=== PATIENT | female | born 1935 | race Caucasian/White ===

== ENCOUNTER 2020-10-12 12:40 | Outpatient (REF) | payer MEDICARE, SELFPAY ==
--- NOTE | 2020-10-12 12:46 | MM_ITS ---
EXAMINATION: BONE DENSITOMETRY CLINICAL INDICATION: Osteoporosis. COMPARISON: Previous BD dated 08/22/2018 and baseline BD dated 05/06/2008. MR lumbar spine 06/25/2014. TECHNIQUE: Using a CTQuan DXA System (software version: 13.1) manufactured by [employer], dual-energy x-ray absorptiometry was performed of the lumbar spine and left hip. The images are of good technical quality. Summary results are attached. FINDINGS: AP SPINE L1-L3 (excluding L4): The data of L1-L4 has been changed to exclude the L4 vertebral body, because degenerative changes at this level may cause overestimation of lumbar spine density. Current: BMD 1.185 g/cm2, Z-score 2.1, T-score 0.1, normal, 3.7% increase from previous, 19.2% increase from baseline (<5% change is not significant). Prior: BMD 1.143 g/cm2. Baseline: BMD 0.994 g/cm2. LEFT FEMUR, NECK: Current: BMD 0.641 g/cm2, Z-score -0.5, T-score -2.9, osteoporosis. Prior: BMD 0.697 g/cm2. Baseline: BMD 0.675 g/cm2. LEFT FEMUR, TOTAL: Current: BMD 0.682 g/cm2, Z-score -0.4, T-score -2.6, osteoporosis, 1.6% decrease from previous, 10.3% decrease from baseline (<5% change is not significant). Prior: BMD 0.693 g/cm2. Baseline: BMD 0.760 g/cm2. IDENTIFIED RISK FACTORS: Osteoporosis, tobacco use (current smoker), height loss, history of fracture (adult). Early menopause, secondary osteoporosis, hysterectomy, bilateral oophorectomy, thiazide. HISTORY OF FRACTURE: No acute fracture. MEDICATIONS: Calcium supplements or multivitamin, vitamin D, Prolia. MM/XR DEXA axial skeleton IMPRESSION: 1. DIAGNOSIS: Osteoporosis based on the lowest T-score value of -2.9 in the femoral neck applying World Health Organization criteria. 2. 10-YEAR FRACTURE RISK PREDICTION, FRAX: Major osteoporotic fracture (clinical spine, forearm, hip or shoulder) 33.7%. Hip fracture 18.2%. 3. Treatment Recommendations: NOF guidelines recommend consideration for treatment in postmenopausal women and men age 50 and older presenting with the following: -A hip or vertebral (clinical or morphometric) fracture. -T-score less than or equal to -2.5 at the femoral neck or spine after appropriate evaluation to exclude secondary causes. -Low bone mass at the hip or spine and a 10-year fracture probability by FRAX of greater than or equal to 3% for hip fracture or greater than or equal to 20% for major osteoporotic fracture based on the [place] adapted WHO algorithm. 4. Other Recommendations: All treatment decisions require clinical judgment and consideration of individual patient factors, including patient preferences, comorbidities, previous drug use, risk factors not captured in the FRAX model (e.g. frailty, falls, vitamin D deficiency, increased bone turnover, interval significant decline in bone density) and possible under or overestimation of fracture risk by FRAX. Additional medical evaluation for secondary cause of low bone mineral density may be appropriate. FUTURE SCAN RECOMMENDATION: People with diagnosed cases of osteoporosis or at high risk for fracture should have regular bone mineral density tests. For patients eligible for Medicare, routine testing is allowed once every 2 years. The testing frequency can be increased to one year for patients who have rapidly progressing disease, those who are receiving or discontinuing medical therapy to restore bone mass, or have additional risk factors.
== END 2020-10-12 12:41 | disposition home or self-care (01) ==
LOC: HO.MAMMO 12:40
PROVIDERS: Visit Provider Internal Medicine Endocrinology, Diabetes & Metabolism
DX: Z13.820 Encounter for screening for osteoporosis (principal); M81.0 Age-related osteoporosis without current pathological fracture; Z78.0 Asymptomatic menopausal state; F17.200 Nicotine dependence, unspecified, uncomplicated; Z79.899 Other long term (current) drug therapy; Z90.710 Acquired absence of both cervix and uterus; Z90.722 Acquired absence of ovaries, bilateral
CPT/HCPCS: 77080

== ENCOUNTER → 2020-11-10 13:20 | Outpatient (BNVA) | payer MEDICARE, SELFPAY | PROVIDERS: PCP Family Medicine; Visit Provider Internal Medicine Endocrinology, Diabetes & Metabolism | DX: M81.0 Age-related osteoporosis without current pathological fracture (principal) | CPT/HCPCS: 96372; 96402; 99212; J0897 ==

== ENCOUNTER 2020-12-01 11:28 | Outpatient (REF) | payer MEDICARE, SELFPAY ==
[2020-12-01 13:36] LABS: Alanine Aminotransferase 16 U/L (0-31); Albumin Level 4.4 g/dL (3.5-5.0); Alkaline Phosphatase 79 U/L (39-117); Anion Gap 13 (12-20); Aspartate Amino Transferase 18 U/L (5-31); Bilirubin Total 0.6 mg/dL (0.0-1.0); Blood Urea Nitrogen 17 mg/dL (9-16); Calcium 9.4 mg/dL (8.4-10.2); Carbon Dioxide 29 mmol/L (22-29); Chloride 100 mmol/L (96-108); Estimated Glomerular Filt Rate > 60; Glucose Fasting 129 mg/dL (60-99); Sodium 137 mmol/L (135-145); Total Protein 6.1 g/dL (6.5-8.0)
[2020-12-01 13:48] LABS: Vitamin D 25-OH Total 67.4 ng/mL (>30)
[2020-12-06 14:47] LABS: N-Telopeptide 15 (see note); NTXCreaRU 119 mg/dL (20-275)
== END 2020-12-01 11:29 | disposition home or self-care (01) ==
LOC: HO.LAB 11:28
PROVIDERS: Visit Provider Internal Medicine Endocrinology, Diabetes & Metabolism
DX: M81.0 Age-related osteoporosis without current pathological fracture (principal)
CPT/HCPCS: 36415; 80053; 82306; 82523

== ENCOUNTER 2021-05-15 11:19 | Outpatient (REF) | payer MEDICARE, SELFPAY ==
[2021-05-15 14:11] LABS: Alanine Aminotransferase 19 U/L (0-31); Albumin Level 4.2 g/dL (3.5-5.0); Alkaline Phosphatase 83 U/L (39-117); Anion Gap 19 (12-20); Aspartate Amino Transferase 17 U/L (5-31); Bilirubin Total 0.5 mg/dL (0.0-1.0); Blood Urea Nitrogen 18 mg/dL (9-16); Calcium 9.6 mg/dL (8.4-10.2); Carbon Dioxide 23 mmol/L (22-29); Chloride 99 mmol/L (96-108); Estimated Glomerular Filt Rate > 60; Glucose Random 110 mg/dL (60-115); Phosphorus 4.2 mg/dL (2.7-4.5); Potassium 4.7 mmol/L (3.3-5.1); Sodium 136 mmol/L (135-145); Total Protein 6.7 g/dL (6.5-8.0)
[2021-05-15 14:31] LABS: Vitamin D 25-OH Total 59.6 ng/mL (>30)
[2021-05-16 19:27] LABS: Calcium (PTHI) 9.5 mg/dL (8.6-10.4); PTHI 15 pg/mL (14-64)
== END 2021-05-15 11:20 | disposition home or self-care (01) ==
LOC: HO.WFDLDS 11:19
PROVIDERS: Visit Provider Internal Medicine
DX: M81.0 Age-related osteoporosis without current pathological fracture (principal)
CPT/HCPCS: 36415; 80053; 82306; 83970; 84100

== ENCOUNTER → 2021-05-18 13:19 | Outpatient (BNVA) | payer MEDICARE, SELFPAY | PROVIDERS: PCP Family Medicine; Visit Provider Internal Medicine | DX: M81.0 Age-related osteoporosis without current pathological fracture (principal) | CPT/HCPCS: 96372; J0897 ==

== ENCOUNTER 2021-08-14 08:22 | Day surgery (SDC) | payer MEDICARE, SELFPAY ==
[2021-08-07 14:25] VITALS: BMI 24.3
--- NOTE | 2021-08-08 14:40 | P.CONAN_ITS ---
Documented by User: Shannon Hart NP 08/08/21 14:40 HPI - Anesthesia Eval Consult details Narrative: 85yo F for Right Cataract Multifocal with IOL Insertion PCP Cleared No previous cataract on record PMFSH Active Problems Active Problems: All Active Problems (Updated 08/07/21 @ 14:22 by Juany Culver RN) Pre-operative clearance (Acute) Vitamin D deficiency (Acute) Osteoporosis (Acute) Past Medical History Medical History Low back pain Osteoporosis Peripheral neuropathy Smoker Vitamin D deficiency Family History Family History Father No problems noted. Mother No problems noted. Surgical History Surgical History History of total hysterectomy with bilateral salpingo-oophorectomy (BSO) Hx of appendectomy Hx of colonoscopy Hx of laminectomy Social History Social History (Updated 08/14/21 @ 11:21 by Shell Christianson MD) Patient Tobacco Use Status: Current everyday Tobacco user Tobacco use type: Cigarette Cigarettes Per Day: 7 Years Smoked: 30+ Smoked in Last 30 Days: Yes Use of substances other than those prescribed or required for medical reasons: No Are you DNR?: No Advance Directives: No Advance Directives Information Provided: Yes Advance Directives on File: No Meds Allergies Allergy/AdvReac Type Severity Reaction Status Date / Time meperidine [Demerol] Allergy Intermediate hives Verified 08/14/21 11:02 tetracycline Allergy Intermediate nausea and Verified 08/14/21 11:02 vomiting dexamethasone [From Decadron] AdvReac Severe severe Verified 08/14/21 11:02 burning sensation Environmental - Pollen Allergy Mild Itchy Eyes Uncoded 08/04/21 11:14 Home Medications Medication Instructions Recorded Confirmed Last Taken Type cholecalciferol (vitamin D3) 25 25 mcg PO DAILY 11/10/20 08/07/21 Unknown History mcg (1,000 unit) capsule denosumab 60 mg/mL subcutaneous 60 mg SUBCUT [id number] 11/10/20 08/07/21 Unknown History syringe (Prolia) ibuprofen 400 mg tablet 400 mg PO Q8H PRN 11/10/20 08/07/21 Unknown History vitamins A,C,I-icqv-skqoew 7,160 1 tab PO BID 11/10/20 08/07/21 Unknown History unit-113 mg-100 unit tablet (PreserVision AREDS) calcium carbonate 600 mg (1,500 1 tab PO BID 08/07/21 08/07/21 Unknown History mg)-vitamin D3 200 unit tablet famotidine 20 mg tablet (Pepcid) 20 mg PO DAILY PRN 08/07/21 08/07/21 Unknown History Exam Exam Date and Time: August 08, 2021 1440 Height,Weight and Vital Signs: Height 5 ft 3 in Weight 62.142 kg Assessment and Plan Assessment Anesthesia Assessment: Chart Reviewed Documented by User: Shell Christianson MD 08/14/21 11:24 ON LICENSE OF [facility] Active Problems Active Problems: All Active Problems (Updated 08/07/21 @ 14:22 by Juany Culver RN) Pre-operative clearance (Acute) Vitamin D deficiency (Acute) Osteoporosis (Acute) Hypertension Arthritis Past Medical History Medical History Low back pain Osteoporosis Peripheral neuropathy Smoker Vitamin D deficiency Family History Family History Father No problems noted. Mother No problems noted. Family history of problems with anesthesia: No Surgical History Surgical History History of total hysterectomy with bilateral salpingo-oophorectomy (BSO) Hx of appendectomy Hx of colonoscopy Hx of laminectomy History of Problems with Anesthesia: No Social History Social History (Updated 08/14/21 @ 11:21 by Shell Christianson MD) Patient Tobacco Use Status: Current everyday Tobacco user Tobacco use type: Cigarette Cigarettes Per Day: 7 Years Smoked: 30+ Smoked in Last 30 Days: Yes Use of substances other than those prescribed or required for medical reasons: No Are you DNR?: No Advance Directives: No Advance Directives Information Provided: Yes Advance Directives on File: No Meds Allergies Allergy/AdvReac Type Severity Reaction Status Date / Time meperidine [Demerol] Allergy Intermediate hives Verified 08/14/21 11:02 tetracycline Allergy Intermediate nausea and Verified 08/14/21 11:02 vomiting dexamethasone [From Decadron] AdvReac Severe severe Verified 08/14/21 11:02 burning sensation Environmental - Pollen Allergy Mild Itchy Eyes Uncoded 08/04/21 11:14 Home Medications Medication Instructions Recorded Confirmed Last Taken Type cholecalciferol (vitamin D3) 25 25 mcg PO DAILY 11/10/20 08/07/21 Unknown History mcg (1,000 unit) capsule denosumab 60 mg/mL subcutaneous 60 mg SUBCUT [id number] 11/10/20 08/07/21 Unknown History syringe (Prolia) ibuprofen 400 mg tablet 400 mg PO Q8H PRN 11/10/20 08/07/21 Unknown History vitamins A,C,N-qhql-pwylzc 7,160 1 tab PO BID 11/10/20 08/07/21 Unknown History unit-113 mg-100 unit tablet (PreserVision AREDS) calcium carbonate 600 mg (1,500 1 tab PO BID 08/07/21 08/07/21 Unknown History mg)-vitamin D3 200 unit tablet famotidine 20 mg tablet (Pepcid) 20 mg PO DAILY PRN 08/07/21 08/07/21 Unknown History Exam Height,Weight and Vital Signs: Height 5 ft 3 in Weight 62.142 kg Vital Signs Temp Pulse Resp BP Pulse Ox 08/14/21 11:03 96.9 F 60 20 157/68 H 99 Airway Mallampati Class: II TM Dist: >3cm Neck ROM: Full Denture: Upper and Lower Heart: RRR Lungs: CTAB Assessment and Plan Assessment Anesthesia Assessment: Anesthesia Plan Discussed Final Anesthetic Review Family History of Problems with Anesthesia: No History of Problems with Anesthesia: No NPO: Yes ASA Class: III Final Preanesthetic Review: No Changes in Pt Med Stat, Meds/Allgs Chart Reviewed, Consent Obtained/Reviewed and Anes Risks/Benef Reviewed Patient Risk: Intermediate Procedure Risk: Low Assessment/Block/Sedation in SS: Assess/Block/Sedation-SS Anesthetic Plan Anesthetic Plan: MAC: Disposition: Standard PACU
[2021-08-14 11:03] VITALS: BP 157/68; PULSE 60; RESP 20; TEMP 36.1; O2SAT 99
[2021-08-14] MEDS: Lactated Ringers 500 ML 50 ML IV (11:16)
[2021-08-14] MEDS: Tetracaine HCl/PF 0.5% Oph Sol 4 ML DROPS 1 DROP EYE-RIGHT (11:19)
[2021-08-14] MEDS: Tropicamide 1 % Ophth Sol 3 ML BTL 1 DROP EYE-RIGHT ×3 (11:20→11:26)
[2021-08-14] MEDS: Phenylephrine HCL 2.5% Oph SoL 2 ML BOTTLE 1 DROP EYE-RIGHT ×3 (11:22→11:28)
--- NOTE | 2021-08-14 12:09 | HO.PNOPHT ---
Ophthalmology Procedure Procedure Date of Service: 08/14/21 Ophthalmology Viscoelastic: Healchristin Buchanant Dual Pack Pro Ophthalmology Lenses: TECMACI [id number] (21) Procedure Notes: PREOPERATIVE DIAGNOSIS: Decreased visual acuity right eye secondary to cataract POSTOPERATIVE DIAGNOSIS: Same PROCEDURE: Right cataract extraction with intraocular lens insertion, Malyugin Ring SURGEON: Gabe Manning M.D. ANESTHESIA: Topical/MAC ESTIMATED BLOOD LOSS: None COMPLICATIONS: None After obtaining informed consent, the patient was brought to the operating room suite and placed in the supine position. After adequate sedation per anesthesia, topical drops of Tetracaine were given to the right eye. The eye was then prepped and draped in the usual sterile fashion. The operating room microscope was then positioned over the operative eye and a lid speculum placed. A paracentesis was created. Viscoelastic was then instilled into the anterior chamber. A three plane incision was then created temporally, utilizing a 2.85 mm keratome. Poor dilation due to PXF required placement of Malyugin RingCapsulotomy forceps were then utilized to create a circular tear capsulotomy. Hydrodissection and hydrodelineation were carried out until adequate mobilization of the nucleus occurred. Phacoemulsification was then utilized to remove the dense central nucleus followed by removal of the cortical material utilizing the automated aspiration irrigation unit. Viscoelastic was instilled into the posterior capsular bag followed by placement of a posterior chamber intraocular lens without difficulty. The Malyugin Ring was removed followed by removal of the residual Viscoelastic was then removed utilizing the automated IA machine. The wound was checked and found to be watertight. The patient tolerated the procedure well and the lid speculum was removed. Intracameral injection of Vigamox 0.1 mL followed by a subtenon injection of Kenalog-40 0.2 mL were administered. The patient will be seen in the a.m.
[2021-08-14 12:13] VITALS: BP 164/59; PULSE 59; RESP 16; TEMP 36.8; O2SAT 100
== END 2021-08-14 12:25 | disposition home or self-care (01) ==
PROVIDERS: PCP Family Medicine; Visit Provider Ophthalmology
PROC: (CPT 66985; principal; 2021-08-14 11:40)
DX: H25.11 Age-related nuclear cataract, right eye (principal); H21.561 Pupillary abnormality, right eye; H35.3132 Nonexudative age-related macular degeneration, bilateral, intermediate dry stage; H54.8 Legal blindness, as defined in USA; I10 Essential (primary) hypertension; Z79.899 Other long term (current) drug therapy; Z88.8 Allergy status to other drugs, medicaments and biological substances; Z87.891 Personal history of nicotine dependence
CPT/HCPCS: 66982; J2250; J3010; J3300; V2632

== ENCOUNTER 2021-08-28 08:33 | Day surgery (SDC) | payer MEDICARE, SELFPAY ==
[2021-08-07 14:28] VITALS: BMI 24.3
--- NOTE | 2021-08-24 11:24 | MHC.SHP ---
Pre-Procedural Eval Section A Date of Service: 08/24/21 The patient is an INPATIENT: No Changes since office visit: No Cold of Flu in the past 2 weeks, No New Medical Problems, No Changes in Medication and No Patient answered all questions The History & Physical has been completed within 30 days and I have reviewed it.: Yes Section B Chief Complaint: cataract Allergies: Allergies Allergy/AdvReac Type Severity Reaction Status Date / Time meperidine [Demerol] Allergy Intermediate hives Verified 08/14/21 11:02 tetracycline Allergy Intermediate nausea and Verified 08/14/21 11:02 vomiting dexamethasone [From Decadron] AdvReac Severe severe Verified 08/14/21 11:02 burning sensation Environmental - Pollen Allergy Mild Itchy Eyes Uncoded 08/04/21 11:14 Plan Diagnosis/Plan: Unchanged I have reviewed the history and physical and performed a pertinent physical examination on my patient. No changes have occurred unless specified.
--- NOTE | 2021-08-25 10:32 | HO.ANESPROP2 ---
Documented by User: Shannon Hart NP 08/25/21 10:32 HPI - Anesthesia Eval Consult details Narrative: 85yo F for Left Cataract Extraction IOL Insertion PCP cleared Right eye 08/14/21 with MAC: Fent 25, Midaz 1, Labetolol 5 PMFSH Active Problems Active Problems: All Active Problems (Updated 08/07/21 @ 14:22 by Juany Culver, RN) Pre-operative clearance (Acute) Vitamin D deficiency (Acute) Osteoporosis (Acute) Past Medical History Medical History Low back pain Osteoporosis Peripheral neuropathy Smoker Vitamin D deficiency Family History Family History Father No problems noted. Mother No problems noted. Family history of problems with anesthesia: No Surgical History Surgical History History of total hysterectomy with bilateral salpingo-oophorectomy (BSO) Hx of appendectomy Hx of colonoscopy Hx of laminectomy History of Problems with Anesthesia: No Social History Social History (Updated 08/14/21 @ 11:21 by Shell Christianson MD) Patient Tobacco Use Status: Current everyday Tobacco user Tobacco use type: Cigarette Cigarettes Per Day: 7 Years Smoked: 30+ Use of substances other than those prescribed or required for medical reasons: No Are you DNR?: No Advance Directives: No Advance Directives Information Provided: Yes Advance Directives on File: No Meds Allergies Allergy/AdvReac Type Severity Reaction Status Date / Time meperidine [Demerol] Allergy Intermediate hives Verified 08/14/21 11:02 tetracycline Allergy Intermediate nausea and Verified 08/14/21 11:02 vomiting dexamethasone [From Decadron] AdvReac Severe severe Verified 08/14/21 11:02 burning sensation Environmental - Pollen Allergy Mild Itchy Eyes Uncoded 08/04/21 11:14 Home Medications Medication Instructions Recorded Confirmed Last Taken Type cholecalciferol (vitamin D3) 25 25 mcg PO DAILY 11/10/20 08/07/21 Unknown History mcg (1,000 unit) capsule denosumab 60 mg/mL subcutaneous 60 mg SUBCUT [id number] 11/10/20 08/07/21 Unknown History syringe (Prolia) ibuprofen 400 mg tablet 400 mg PO Q8H PRN 11/10/20 08/07/21 Unknown History vitamins A,C,I-maoh-vefcdn 7,160 1 tab PO BID 11/10/20 08/07/21 Unknown History unit-113 mg-100 unit tablet (PreserVision AREDS) calcium carbonate 600 mg-vitamin 1 tab PO BID 08/07/21 08/07/21 Unknown History D3 5 mcg (200 unit) tablet famotidine 20 mg tablet (Pepcid) 20 mg PO DAILY PRN 08/07/21 08/07/21 Unknown History Exam Exam Date and Time: August 25, 2021 1032 Height,Weight and Vital Signs: Height 5 ft 3 in Weight 62.142 kg Assessment and Plan Assessment Anesthesia Assessment: Chart Reviewed Final Anesthetic Review Family History of Problems with Anesthesia: No History of Problems with Anesthesia: No Documented by User: Quang Parsons MD 08/28/21 12:20 PMFSH Past Medical History Medical History Low back pain Osteoporosis Peripheral neuropathy Smoker Vitamin D deficiency Family History Family History Father No problems noted. Mother No problems noted. Surgical History Surgical History History of total hysterectomy with bilateral salpingo-oophorectomy (BSO) Hx of appendectomy Hx of colonoscopy Hx of laminectomy Social History Social History (Updated 08/14/21 @ 11:21 by Shell Christianson MD) Patient Tobacco Use Status: Current everyday Tobacco user Tobacco use type: Cigarette Cigarettes Per Day: 7 Years Smoked: 30+ Use of substances other than those prescribed or required for medical reasons: No Are you DNR?: No Advance Directives: No Advance Directives Information Provided: Yes Advance Directives on File: No Meds Allergies Allergy/AdvReac Type Severity Reaction Status Date / Time meperidine [Demerol] Allergy Intermediate hives Verified 08/14/21 11:02 tetracycline Allergy Intermediate nausea and Verified 08/14/21 11:02 vomiting dexamethasone [From Decadron] AdvReac Severe severe Verified 08/14/21 11:02 burning sensation Environmental - Pollen Allergy Mild Itchy Eyes Uncoded 08/04/21 11:14 Home Medications Medication Instructions Recorded Confirmed Last Taken Type cholecalciferol (vitamin D3) 25 25 mcg PO DAILY 11/10/20 08/07/21 Unknown History mcg (1,000 unit) capsule denosumab 60 mg/mL subcutaneous 60 mg SUBCUT [id number] 11/10/20 08/07/21 Unknown History syringe (Prolia) ibuprofen 400 mg tablet 400 mg PO Q8H PRN 11/10/20 08/07/21 Unknown History vitamins A,C,V-rjnd-rmcvqn 7,160 1 tab PO BID 11/10/20 08/07/21 Unknown History unit-113 mg-100 unit tablet (PreserVision AREDS) calcium carbonate 600 mg-vitamin 1 tab PO BID 08/07/21 08/07/21 Unknown History D3 5 mcg (200 unit) tablet famotidine 20 mg tablet (Pepcid) 20 mg PO DAILY PRN 08/07/21 08/07/21 Unknown History Exam Airway Mallampati Class: II TM Dist: >3cm Neck ROM: Full Partial: Lower Loose/Missing/Broken Teeth: Yes Heart: rrr+[id number] Lungs: cta b/l Assessment and Plan Assessment Anesthesia Assessment: Anesthesia Plan Discussed Final Anesthetic Review NPO: Yes ASA Class: III Final Preanesthetic Review: No Changes in Pt Med Stat, Meds/Allgs Chart Reviewed, Consent Obtained/Reviewed and Anes Risks/Benef Reviewed Patient Risk: Intermediate Procedure Risk: Low Assessment/Block/Sedation in SS: Assess/Block/Sedation-SS Anesthetic Plan Anesthetic Plan: MAC: and Agree w/ Assess. and Plan Disposition: Standard PACU
[2021-08-28 10:14] VITALS: BP 157/68; PULSE 57; RESP 18; TEMP 36.4; O2SAT 99
[2021-08-28] MEDS: Lactated Ringers 500 ML 50 ML IV (10:18)
[2021-08-28] MEDS: Tetracaine HCl/PF 0.5% Oph Sol 4 ML DROPS 1 DROP EYE-LEFT (10:20)
[2021-08-28] MEDS: Tropicamide 1 % Ophth Sol 3 ML BTL 1 DROP EYE-LEFT ×3 (10:23→10:29)
[2021-08-28] MEDS: Phenylephrine HCL 2.5% Oph SoL 2 ML BOTTLE 1 DROP EYE-LEFT ×3 (10:25→10:31)
--- NOTE | 2021-08-28 11:37 | HO.PNOPHT ---
Ophthalmology Procedure Procedure Date of Service: 08/28/21 Ophthalmology Viscoelastic: Healon Duet Dual Pack Pro Ophthalmology Lenses: TECNIS [id number] (20.5) Procedure Notes: PREOPERATIVE DIAGNOSIS: Decreased visual acuity left eye secondary to cataract POSTOPERATIVE DIAGNOSIS: Same PROCEDURE: Left cataract extraction with intraocular lens insertion SURGEON: Gabe Manning M.D. ANESTHESIA: Topical/MAC ESTIMATED BLOOD LOSS: None COMPLICATIONS: None After obtaining informed consent, the patient was brought to the operation room suite and placed in the supine position. After adequate sedation per anesthesia, topical drops of Tetracaine were given to the left eye. The eye was then prepped and draped in the usual sterile fashion. The operating room microscope was then positioned over the operative eye and a lid speculum placed. A paracentesis was created. Viscoelastic was then instilled into the anterior chamber. A three plane incision was then created temporally, utilizing a 2.85 mm keratome. Capsulotomy forceps were then utilized to create a circular tear capsulotomy. Hydrodissection and hydrodelineation were carried out until adequate mobilization of the nucleus occurred. Phacoemulsification was then utilized to remove the dense central nucleus followed by removal of the cortical material utilizing the automated aspiration irrigation unit. Viscoat elastic was instilled into the posterior capsular bag followed by placement of a posterior chamber intraocular lens without difficulty. The residual Viscoat elastic was then removed utilizing the automated IA machine. The wound was check and found to be watertight. The patient tolerated the procedure well and the lid speculum was removed. Intracameral injection of Vigamox 0.1 mL followed by a subtenon injection of Kenalog-40 0.2 mL were administered. The patient will be seen in the a.m.
[2021-08-28 12:03] VITALS: BP 148/63; PULSE 63; RESP 17; TEMP 36.9; O2SAT 97
== END 2021-08-28 12:15 | disposition home or self-care (01) ==
PROVIDERS: PCP Family Medicine; Visit Provider Ophthalmology
PROC: (CPT 66985; principal; 2021-08-28 12:40)
DX: H25.12 Age-related nuclear cataract, left eye (principal); H54.8 Legal blindness, as defined in USA; H35.3132 Nonexudative age-related macular degeneration, bilateral, intermediate dry stage; I10 Essential (primary) hypertension; M81.0 Age-related osteoporosis without current pathological fracture; E55.9 Vitamin D deficiency, unspecified; Z79.899 Other long term (current) drug therapy; Z88.1 Allergy status to other antibiotic agents; Z88.8 Allergy status to other drugs, medicaments and biological substances; F17.210 Nicotine dependence, cigarettes, uncomplicated
CPT/HCPCS: 66984; J2250; J3010; J3300; V2632

== ENCOUNTER → 2022-01-16 10:39 | Outpatient (BNVA) | payer MEDICARE, SELFPAY | PROVIDERS: PCP Family Medicine; Visit Provider Internal Medicine Endocrinology, Diabetes & Metabolism | DX: M81.0 Age-related osteoporosis without current pathological fracture (principal) | CPT/HCPCS: 99212 ==

== ENCOUNTER 2022-01-22 11:23 | Outpatient (REF) | payer MEDICARE, SELFPAY ==
[2022-01-22 13:49] LABS: Albumin Level 4.2 g/dL (3.5-5.0); Anion Gap 12 (12-20); Blood Urea Nitrogen 27 mg/dL (9-16); Calcium 11.2 mg/dL (8.4-10.2); Carbon Dioxide 30 mmol/L (22-29); Chloride 100 mmol/L (96-108); Estimated Glomerular Filt Rate 57; Glucose Random 114 mg/dL (60-115); Potassium 4.2 mmol/L (3.3-5.1); Sodium 138 mmol/L (135-145)
[2022-01-25 22:02] LABS: Prot Elec - Albumin 4.1 g/dL (3.8-4.8); Prot Elec - Alpha1 0.4 g/dL (0.2-0.3); Prot Elec - Alpha2 0.9 g/dL (0.5-0.9); Prot Elec - Beta 1 0.4 g/dL (0.4-0.6); Prot Elec - Beta 2 0.2 g/dL (0.2-0.5); Prot Elec - Gamma 0.6 g/dL (0.8-1.7); Prot Elec - Total Protein 6.6 g/dL (6.1-8.1)
== END 2022-01-22 11:24 | disposition home or self-care (01) ==
LOC: HO.WFDLDS 11:23
PROVIDERS: Visit Provider Internal Medicine Endocrinology, Diabetes & Metabolism
DX: M81.0 Age-related osteoporosis without current pathological fracture (principal)
CPT/HCPCS: 80048; 82040; 84165; 86335

== ENCOUNTER → 2022-01-25 13:41 | Outpatient (BNVA) | payer MEDICARE, SELFPAY | PROVIDERS: PCP Family Medicine; Visit Provider Internal Medicine Endocrinology, Diabetes & Metabolism | DX: M81.0 Age-related osteoporosis without current pathological fracture (principal) | CPT/HCPCS: 96372; J0897 ==

== ENCOUNTER 2022-06-12 11:13 | Outpatient (REF) | payer MEDICARE, SELFPAY ==
[2022-06-12 13:10] LABS: MANUAL DIFF FLAG NO
[2022-06-12 13:13] LABS: Basophils Percent Auto 0.4 % (0-2); Eosinophils Absolute Auto 0.1 X10*3/uL (0.0-0.4); Eosinophils Percent Auto 1.2 % (0-4); Hematocrit 40.2 % (37.0-47.0); Hemoglobin 13.6 g/dl (12.0-16.0); Imm Gran Abs Auto 0.02 X10*3/uL (0.00-0.03); Imm Gran Pct Auto 0.3 % (0.0-0.4); Lymphocytes Absolute Auto 1.4 X10*3/uL (1.2-4.9); Lymphocytes Percent Auto 17.9 % (20-40); Mean Corpuscular HGB Conc 33.8 g/dl (31.0-35.0); Mean Corpuscular Hemoglobin 31.1 pg (27.0-33.0); Mean Platelet Volume 9.3 fL (9.4-12.3); Monocytes Absolute Auto 0.8 X10*3/uL (0.1-1.2); Monocytes Percent Auto 10.4 % (2-11); Neutrophils Absolute Auto 5.5 x10*3/uL (2.0-8.3); Neutrophils Percent Auto 69.8 % (45-73); Platelet Count 304 X10*3/uL (160-400); Red Blood Count 4.37 X10*6/uL (4.20-5.50); Red Cell Distribution Width 13.1 % (11.0-16.0); White Blood Count 7.8 X10*3/uL (4.8-10.8)
[2022-06-12 13:30] LABS: Alanine Aminotransferase 16 U/L (0-31); Alkaline Phosphatase 69 U/L (39-117); Anion Gap 16 (12-20); Aspartate Amino Transferase 17 U/L (5-31); Bilirubin Total 0.2 mg/dL (0.0-1.0); Blood Urea Nitrogen 15 mg/dL (9-16); Calcium 9.1 mg/dL (8.4-10.2); Carbon Dioxide 26 mmol/L (22-29); Chloride 101 mmol/L (96-108); Cholesterol 202 mg/dL; Estimated Glomerular Filt Rate > 60; Glucose Fasting 110 mg/dL (60-99); HDL Cholesterol 44 mg/dL; LDL Cholesterol Calculated 141 mg/dl; Potassium 4.5 mmol/L (3.3-5.1); Sodium 138 mmol/L (135-145); Total Protein 6.2 g/dL (6.5-8.0); Triglycerides 88 mg/dL
[2022-06-12 13:45] LABS: TSH reflex Free T4 1.75 uIU/mL (0.32-4.0)
== END 2022-06-12 11:14 | disposition home or self-care (01) ==
LOC: HO.WFDLDS 11:13
PROVIDERS: Visit Provider Family Medicine
DX: Z00.00 Encounter for general adult medical examination without abnormal findings (principal)
CPT/HCPCS: 36415; 80053; 80061; 84443; 85025

== ENCOUNTER → 2022-07-31 12:53 | Outpatient (BNVA) | payer MEDICARE, SELFPAY | PROVIDERS: PCP Family Medicine; Visit Provider Internal Medicine Endocrinology, Diabetes & Metabolism | DX: M81.0 Age-related osteoporosis without current pathological fracture (principal) | CPT/HCPCS: 96372; 99212; J0897 ==

== ENCOUNTER 2023-01-23 11:03 | Outpatient (REF) | payer MEDICARE, SELFPAY ==
[2023-01-23 12:10] LABS: Appearance Urine Clear; Color Urine Yellow; Glucose Urine UA Negative (Negative); Leukocyte Esterase Urine Trace (Negative); Nitrite Urine Negative (Negative); PH 7.5 (5.0-9.0); Specific Gravity - Urine 1.015 (1.005-1.025); UMIC TRIGGER UA YES; Urine Blood Negative (Negative); Urine Ketones Negative (Negative); Urine Protein Negative (Neg-Trace)
[2023-01-23 12:13] LABS: Bacteria Urine None Seen (None Seen); Hyaline Casts Urine 0-2 /LPF (0-2); RBC Urine 0-2 /HPF (0-2); Squamous Epithelial Cell Urine 0-2 /HPF (0-2); WBC Urine 0-5 /HPF (0-5)
[2023-01-23 12:47] LABS: Calcium 9.1 mg/dL (8.4-10.2)
[2023-01-23 12:57] LABS: Creatinine Urine 91.33 mg/dL; Microalbum/Creatinine Ratio Ur 13.1 ug/mg cr
[2023-01-23 13:03] LABS: Anion Gap 15 (12-20); Blood Urea Nitrogen 17 mg/dL (9-16); Calcium 9.1 mg/dL (8.4-10.2); Carbon Dioxide 26 mmol/L (22-29); Chloride 102 mmol/L (96-108); Estimated Glomerular Filt Rate > 60; Glucose Random 117 mg/dL (60-115); Iron 51 mcg/dL (30-160); Percent Iron Saturation 20 % (15-50); Potassium 4.7 mmol/L (3.3-5.1); Sodium 138 mmol/L (135-145); Total Iron Binding Capacity 258 mcg/dL (228-428); Unsaturated Iron Binding 207 ug/dL
[2023-01-23 13:12] LABS: Vitamin B12 981 pg/mL (200-900); Vitamin D 25-OH Total 61.3 ng/mL (>30)
== END 2023-01-23 11:04 | disposition home or self-care (01) ==
LOC: HO.LAB 11:03
PROVIDERS: PCP Family Medicine; Visit Provider Internal Medicine Endocrinology, Diabetes & Metabolism
DX: Z00.00 Encounter for general adult medical examination without abnormal findings (principal); L85.3 Xerosis cutis; M81.0 Age-related osteoporosis without current pathological fracture; L65.9 Nonscarring hair loss, unspecified; I10 Essential (primary) hypertension; E53.8 Deficiency of other specified B group vitamins; E55.9 Vitamin D deficiency, unspecified
CPT/HCPCS: 36415; 80048; 81001; 82043; 82306; 82310; 82607; 82746; 83540

== ENCOUNTER → 2023-01-29 12:49 | Outpatient (BNVA) | payer MEDICARE, SELFPAY | PROVIDERS: PCP Family Medicine; Visit Provider Internal Medicine Endocrinology, Diabetes & Metabolism | DX: M81.0 Age-related osteoporosis without current pathological fracture (principal); E55.9 Vitamin D deficiency, unspecified; F17.200 Nicotine dependence, unspecified, uncomplicated; Z79.620 Long term (current) use of immunosuppressive biologic | CPT/HCPCS: 96372; 99212; J0897 ==

== ENCOUNTER 2023-02-12 13:17 | Outpatient (REF) | payer MEDICARE, SELFPAY ==
--- NOTE | ~2023-02-12 | MM_ITS ---
EXAMINATION: BONE DENSITOMETRY CLINICAL INDICATION: Age-related osteoporosis without current pathological fracture. COMPARISON: Previous BD dated 10/12/2020 and baseline BD dated 05/06/2008. TECHNIQUE: Using a [employer] DXA System (software version: 13.1) manufactured by [employer], dual-energy x-ray absorptiometry was performed of the lumbar spine and left hip. The images are of good technical quality. Summary results are attached. FINDINGS: AP SPINE L1-L3 (excluding L4): The data of L1-L4 has been changed to exclude the L4 vertebral body, because generative changes at this level may cause overestimation of lumbar spine density. Current: BMD 1.194 g/cm2, Z-score 2.3, T-score 0.2, normal, 0.8% increase from previous, 20.1% increase from baseline (<5% change is not significant). Prior: BMD 1.185 g/cm2. Baseline: BMD 0.994 g/cm2. LEFT FEMUR, NECK: Current: BMD 0.669 g/cm2, Z-score -0.1, T-score -2.7, osteoporosis. Prior: BMD 0.641 g/cm2. Baseline: BMD 0.675 g/cm2. LEFT FEMUR, TOTAL: Current: BMD 0.732 g/cm2, Z-score 0.2, T-score -2.2, osteopenia, 7.3% increase from previous, 3.7% decrease from baseline (<5% change is not significant). Prior: BMD 0.682 g/cm2. Baseline: BMD 0.760 g/cm2. IDENTIFIED RISK FACTORS: Menopause, hysterectomy, bilateral oophorectomy, height loss, history of fracture (adult), tobacco use (current smoker), thiazide. HISTORY OF FRACTURE: Spine. MEDICATIONS: Calcium supplements or multivitamin, vitamin D, Prolia. MM/XR DEXA axial skeleton IMPRESSION: 1. DIAGNOSIS: Osteoporosis based on the lowest T-score value of -2.7 in the femoral neck applying World Health Organization criteria. 2. 10-YEAR FRACTURE RISK PREDICTION, FRAX: According to the guidelines, FRAX calculation should only be performed on patients in the osteopenia bone density category. Therefore, FRAX was not performed on this patient. 3. Treatment Recommendations: NOF guidelines recommend consideration for treatment in postmenopausal women and men age 50 and older presenting with the following: -A hip or vertebral (clinical or morphometric) fracture. -T-score less than or equal to -2.5 at the femoral neck or spine after appropriate evaluation to exclude secondary causes. -Low bone mass at the hip or spine and a 10-year fracture probability by FRAX of greater than or equal to 3% for hip fracture or greater than or equal to 20% for major osteoporotic fracture based on the [place] adapted WHO algorithm. 4. Other Recommendations: All treatment decisions require clinical judgment and consideration of individual patient factors, including patient preferences, comorbidities, previous drug use, risk factors not captured in the FRAX model (e.g. frailty, falls, vitamin D deficiency, increased bone turnover, interval significant decline in bone density) and possible under or overestimation of fracture risk by FRAX. Additional medical evaluation for secondary cause of low bone mineral density may be appropriate. FUTURE SCAN RECOMMENDATION: People with diagnosed cases of osteoporosis or at high risk for fracture should have regular bone mineral density tests. For patients eligible for Medicare, routine testing is allowed once every 2 years. The testing frequency can be increased to one year for patients who have rapidly progressing disease, those who are receiving or discontinuing medical therapy to restore bone mass, or have additional risk factors.
== END 2023-02-12 13:18 | disposition home or self-care (01) ==
LOC: HO.MAMMO 13:17
PROVIDERS: PCP Family Medicine; Visit Provider Internal Medicine Endocrinology, Diabetes & Metabolism
DX: M81.0 Age-related osteoporosis without current pathological fracture (principal)
CPT/HCPCS: 77080

== ENCOUNTER 2023-04-15 11:25 | Outpatient (AMB) | payer MEDICARE, SELFPAY ==
--- NOTE | 2023-04-15 11:32 | MHC.PC.OV ---
Vital Signs 04/15/23 11:35 Height 5 ft 2.5 in Weight 127 lb 6 oz BMI 22.9 BP 126/76 Blood Pressure Location Lt brachial Position Sitting Pulse 67 Pulse Source Pulse Oximeter Pulse Oximetry (%) 100 Intake Visit Reasons: f/u HTN and chronic conditions Intake Note: pt is here for f/u htn, chronic cond Accompanied by: Self / Same As Patient Allergies meperidine [Demerol] Allergy (Intermediate, Verified 04/15/23 11:34) hives tetracycline Allergy (Intermediate, Verified 04/15/23 11:34) nausea and vomiting dexamethasone [From Decadron] Adverse Reaction (Severe, Verified 04/15/23 11:34) severe burning sensation Environmental - Pollen Allergy (Mild, Uncoded 01/29/23 12:51) Itchy Eyes Medication List - Last Reconciled 04/15/23 by Mike Vegas MD calcium carbonate-vitamin D3 600 mg-5 mcg (200 unit) 1 tab PO DAILY cholecalciferol (vitamin D3) 25 mcg PO DAILY denosumab (Prolia) 60 mg subcut [id number] famotidine (Pepcid) 20 mg PO DAILY PRN hydrochlorothiazide 12.5 mg PO DAILY 90 days ibuprofen 400 mg PO Q8H PRN labetalol 200 mg PO BID lisinopril 5 mg PO DAILY 90 days vitamins A,C,L-axvs-fdlunv 2,148 mcg-113 mg-45 mg-17.4mg (PreserVision AREDS) 1 tab PO BID Tobacco use date assessed: 04/15/23 Fall risk assessment: No Falls in past year Last assessed Fall Risk: 04/15/23 Dental Screening Dental Screen Date: 04/15/23 Did you have a dental visit in the last 12 months?: Yes Did you have a dental problem in the last 6 months where you did not have access to dental care?: No Was dental information given to patient?: Patient has dentist HPI f/u HTN and chronic conditions HPI Details 87 y/o female presents to f/u hypertension and chronic conditions. Last A1c 12/25/22 was 5.6%. A1c today 04/15/23 is 5.6%. Blood pressure today is 126/76. He is on hydrochlorothiazide 12.5mg and lisinopril 5mg daily. She is also on labetalol 200mg b.i.d. She reports she has been eating well. She reports she continues to smoke a half a pack per day. Pt reports cramping whenever she walks. She also describes a discomfort/tingling on her feet. [facility] Medical History Low back pain Osteoporosis Peripheral neuropathy Smoker Vitamin D deficiency Surgical History H/O bilateral cataract extraction History of total hysterectomy with bilateral salpingo-oophorectomy (BSO) Hx of appendectomy Hx of colonoscopy Hx of laminectomy Family History Father No problems noted. Mother No problems noted. Other Hypertension [facility] Tobacco Use Status: Current everyday Tobacco user Tobacco use type: Cigarette Cigarettes Per Day: 7 Years Smoked: 30+ e-Cigarette/Vaping Use: Never Used Second Hand Smoke Exposure: No service: No Current occupational status: retired Current occupational exposures/hazards: No Cognitive needs: No Hearing needs: No Vision needs: No Questionnaire Thrive Questionnaire Date Thrive assessed: 09/27/22 RAHUL-7 AMB Questionnaire RAHUL-7 Date RAHUL - 7 assessed: 09/27/22 Source: Developed by Drs. Chicho Hanson, Denia Salguero, Ceasar Lebron and colleagues, with an educational colt from [employer]. Review of Systems Const Denies chills, Denies fatigue, Denies fever(s), Denies headache(s) and Denies weakness ENT Denies dizziness and Denies headache(s) Card Denies chest pain, Denies lightheadedness, Denies dyspnea and Denies other (Palpitations) Resp Denies cough, Denies dyspnea, Denies wheezing and Denies other ( shortness of breath) Musc Denies numbness and Denies tingling Neuro Denies dizziness, Denies headache(s), Denies numbness, Denies tingling, Denies paresthesias and Denies weakness Psych Denies anxiety and Denies depression Endo Denies fatigue Aller/Immun Denies wheezing Physical exam (Primary Care) Vital Signs: Last Vital Signs Pulse 67 07/31/23 11:35 BP 126/76 04/15/23 11:35 Pulse Ox 100 04/15/23 11:35 BMI result Body Mass Index 22.9 Tobacco/Smoking Status: Tobacco use Status Tobacco use date assessed 04/15/23 04/15/23 11:39 Patient Tobacco Use Status Current everyday Tobacco 04/15/23 11:39 Tobacco use type Cigarette 04/15/23 11:39 e-Cigarette/Vaping Use Never Used 04/15/23 11:39 Thrive Assessment: Date of Thrive Assessment Date Thrive assessed 09/27/22 04/15/23 11:39 Const General: no acute distress and well developed Nutritional Appearance: well nourished Orientation/consciousness: patient oriented x3 HENMT Head: Yes normocephalic and Yes atraumatic Eyes General: appearance normal, both eyes and all related structures Pupils: Equal, round and reactive pupils present EOM: EOMs intact bilaterally Resp Effort & Inspection: normal respiratory effort Auscultation: clear to auscultation bilaterally Cardio Other: 1+ pulses bilateral ankles Rate: regular rate Rhythm: regular rhythm Heart sounds: S1 normal heart sound present, S2 normal heart sound present, no gallops, no murmurs and no rubs Neuro General: patient oriented x3 and gait normal Cranial nerves: Yes Equal, round and reactive pupils present Extrem Other: 1+ pulses bilateral ankles and cold skin Psych Affect: normal affect Results AMB Hemoglobin A1c AMB Hemoglobin A1c 5.6 % Last Edit by James Mitchell CMA on 04/15/23 12:32 Results Reviewed Results Reviewed: Laboratory Last Values Hgb A1c (Clinic) 5.6 % (4.0-6.0) 04/15/23 12:31 Assessment and Plan Assessment & Plan (1) Essential hypertension: Code(s): I10 - Essential (primary) hypertension Plan: Blood pressure is controlled. Goal is less than 140/90 Continue current medication regimen (2) Elevated fasting glucose: Code(s): R73.01 - Impaired fasting glucose Plan: A1c again 5.6%. Stable but at top normal range and she has had elevated fasting blood sugars; likely some insulin resistance. Encouraged a diet lower in sugars and starches Will follow (3) Claudication of lower extremity: Code(s): I73.9 - Peripheral vascular disease, unspecified Plan: Patient has some known neuropathy in her lower extremities but she is getting cramping with walking Pulses seem diminished in bilateral ankles Referred to vascular surgery (4) Osteoporosis: Code(s): M81.0 - Age-related osteoporosis without current pathological fracture Plan: Osteoporosis and followed by Dr. Stanford. She is on Prolia Recent bone density not significantly changed from prior Follow-up with Dr. Stanford as recommended (5) Smoker: Code(s): F17.200 - Nicotine dependence, unspecified, uncomplicated Plan: Encouraged cessation Orders: Orders AMB Hemoglobin A1c Today R73.01 - Impaired fasting glucose Referrals Vascular Surgery Referral I73.9 - Peripheral vascular disease, unspecified Coding Level of Care Code Est Pt Level 4 (62965) Diagnoses Essential hypertension I10 Elevated fasting glucose R73.01 Claudication of lower extremity I73.9 Osteoporosis M81.0 Smoker F17.200
[2023-04-15 11:35] VITALS: BP 126/76; PULSE 67; O2SAT 100; BMI 22.9
== END 2023-04-15 12:47 | disposition home or self-care (01) ==
PROVIDERS: PCP Family Medicine; Visit Provider Family Medicine
DX: I10 Essential (primary) hypertension (principal); I73.9 Peripheral vascular disease, unspecified; F17.210 Nicotine dependence, cigarettes, uncomplicated; R73.01 Impaired fasting glucose; M81.0 Age-related osteoporosis without current pathological fracture
CPT/HCPCS: 83036; 99214

== ENCOUNTER 2023-07-11 11:25 | Outpatient (AMB) | payer MEDICARE, SELFPAY ==
--- NOTE | 2023-07-11 11:26 | A.OFFVIS_ITS ---
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 Pt states she gets cramping after about 50 steps. Pt states she can go up 1 flight of stairs without issue, not more than 1 flight. Pt states she has had these symptoms for a few years Accompanied by: Self / Same As Patient Allergies meperidine [Demerol] Allergy (Intermediate, Verified 07/11/23 11:33) hives tetracycline Allergy (Intermediate, Verified 07/11/23 11:33) nausea and vomiting dexamethasone [From Decadron] Adverse Reaction (Severe, Verified 07/11/23 11:33) severe burning sensation Environmental - Pollen Allergy (Mild, Uncoded 07/11/23 11:33) Itchy Eyes HPI BOILER RIVETER/ PCP referral for PVD HPI Details Very pleasant 87-year-old female presents for evaluation regarding her lower extremities. She has a history of prior back injury and a ruptured disc which has caused her significant out mount obtain. Upon discussion with her she is able to barely walk about 50 ft and she experiences leg and calf cramping. She reports that it is left more so than right. She smokes about a half a pack per day. In addition she has a history of hypertension as well. She now presents to us for vascular evaluation. [facility] Medical History Smoker Peripheral neuropathy Low back pain Vitamin D deficiency Osteoporosis Surgical History H/O bilateral cataract extraction Hx of colonoscopy Hx of laminectomy History of total hysterectomy with bilateral salpingo-oophorectomy (BSO) Hx of appendectomy Family History Father No problems noted. Mother No problems noted. Other Hypertension [facility] Tobacco Use Status: Current everyday Tobacco user Tobacco use type: Cigarette Cigarettes Per Day: 7 Years Smoked: 30+ e-Cigarette/Vaping Use: Never Used Second Hand Smoke Exposure: No service: No Current occupational status: retired Current occupational exposures/hazards: No Cognitive needs: No Hearing needs: No Vision needs: No Review of Systems Const All systems reviewed & are unremarkable except as noted in HPI and below Reports no additional complaints ENT Reports Normal hearing present Card Denies chest pain, Denies chest pain at rest, Denies chest pain with activity and Denies pedal edema Resp Denies cough GI Denies abdominal pain Musc Denies abnormal gait, Denies muscle cramps and Denies radiating pain into limb Skin/Breast Denies skin ulcer and Denies wounds Neuro Reports Normal hearing present and Denies abnormal gait Psych Reports no additional complaints Physical Exam Vital Signs: BMI result Body Mass Index 22.9 Const General: cooperative, healthy appearing and comfortable Orientation/consciousness: oriented to person, oriented to place and oriented to time HEENT Head: Yes normal to inspection Neck Neck: Yes normal visual inspection Carotids: no bruits Chest Chest palpation & inspection: normal inspection of the chest Resp Effort & Inspection: normal respiratory effort and able to speak in complete sentences Auscultation: clear to auscultation bilaterally, no crackles, no rales, no rhonchi and no wheezes Cardio Other: Bilateral DP signals Rate: regular rate Rhythm: regular rhythm Heart sounds: S1 normal heart sound present and S2 normal heart sound present Bruits: no carotid bruits Peripheral pulses: Peripheral pulses 2+ throughout GI Inspection: Yes normal to inspection Skin Wounds: no wounds Hair: normal Neuro General: oriented to person, oriented to place and oriented to time Cranial nerves: Yes CN's II-XII intact bilaterally and Yes Normal hearing present Cognition (Neuro): normal cognition Motor exam (neuro): 5/5 motor strength present throughout Extrem Other: venous exam: No significant superficial varicosities or spider telangiectasias, minimal edema Significant bilateral bunions. General: No clubbing, No cyanosis and No edema Psych Appearance: grossly normal Mental Status: mental status grossly normal Speech and movement: Normal speech and movement present Assessment & Plan Assessment & Plan (1) PAD (peripheral artery disease): Code(s): I73.9 - Peripheral vascular disease, unspecified Plan: In short patient has an element of PAD. There is an element of neuropathy but due to her smoking history and hypertension I do think an arterial workup is indicated. I have taken the liberty of ordering noninvasive arterial testing. The patient will follow up with us after testing. Thank you for allowing us to assist in her care. If there are any questions or concerns please do not hesitate to contact us. Orders: Orders US arterial duplex LE BI 1 Week I73.9 - Peripheral vascular disease, unspecified Coding Level of Care Code New Pt Level 4 (76504) Diagnoses PAD (peripheral artery disease) I73.9
[2023-07-11 11:27] VITALS: BMI 22.9
== END 2023-07-11 11:53 | disposition home or self-care (01) ==
PROVIDERS: PCP Family Medicine; Visit Provider Surgery Vascular Surgery
DX: I73.9 Peripheral vascular disease, unspecified (principal)
CPT/HCPCS: 99203

== ENCOUNTER → 2023-07-11 11:25 | Outpatient (BNVA) | payer MEDICARE, SELFPAY | PROVIDERS: PCP Family Medicine; Visit Provider Surgery Vascular Surgery ==

== ENCOUNTER 2023-07-23 11:26 | Outpatient (AMB) | payer MEDICARE, SELFPAY ==
[2023-07-23 11:45] VITALS: BP 120/64; PULSE 67; O2SAT 99; BMI 22.8
--- NOTE | 2023-07-23 11:45 | A.OFFPC_ITS ---
Vital Signs 07/23/23 11:45 Height 5 ft 2.5 in Weight 126 lb 8 oz BMI 22.8 BP 120/64 Blood Pressure Location Lt brachial Position Sitting Pulse 67 Pulse Source Pulse Oximeter Pulse Oximetry (%) 99 Oxygen Delivery Method Room Air Intake Visit Reasons: f/u hypertension and elevated fasting glucose Intake Note: Patient is here to follow up on hypertension and elevated fasting glucose today. Allergies meperidine [Demerol] Allergy (Intermediate, Verified 07/23/23 11:49) hives tetracycline Allergy (Intermediate, Verified 07/23/23 11:49) nausea and vomiting dexamethasone [From Decadron] Adverse Reaction (Severe, Verified 07/23/23 11:49) severe burning sensation Environmental - Pollen Allergy (Mild, Uncoded 07/23/23 11:49) Itchy Eyes Tobacco use date assessed: 07/23/23 Fall risk assessment: No Falls in past year Last assessed Fall Risk: 07/23/23 HPI f/u hypertension and elevated fasting glucose HPI Details 87 y/o female presents to f/u hypertensi on and elevated fasting glucose. She reports back pain/leg pain has been preventing her from exercising more often. She has been taking ibuprofen for relief. A1c today 07/23/23 is 5.7% - which has worsened from 5.6%. Blood pressure today is 120/64. She is on lisinopril 5mg, labetalol 200mg b.i.d. and HCTZ 12.5mg PFSH Medical History Smoker Peripheral neuropathy Low back pain Vitamin D deficiency Osteoporosis Surgical History H/O bilateral cataract extraction Hx of colonoscopy Hx of laminectomy History of total hysterectomy with bilateral salpingo-oophorectomy (BSO) Hx of appendectomy Family History Father No problems noted. Mother No problems noted. Other Hypertension [facility] Tobacco Use Status: Current everyday Tobacco user Tobacco use type: Cigarette Cigarettes Per Day: 7 Years Smoked: 30+ e-Cigarette/Vaping Use: Never Used Second Hand Smoke Exposure: No service: No Current occupational status: retired Current occupational exposures/hazards: No Cognitive needs: No Hearing needs: No Vision needs: No Questionnaire Thrive Questionnaire Date Thrive assessed: 09/27/22 RAHUL-7 AMB Questionnaire RAHUL-7 Date RAHUL - 7 assessed: 09/27/22 Source: Developed by Drs. Chicho Hanson, Denia Salguero, Ceasar Lebron and colleagues, with an educational colt from [employer]. Review of Systems Const Denies chills, Denies fatigue, Denies fever(s), Denies headache(s) and Denies weakness ENT Denies dizziness and Denies headache(s) Card Denies chest pain, Denies lightheadedness, Denies dyspnea and Denies other (Palpitations) Resp Denies cough, Denies dyspnea, Denies wheezing and Denies other ( shortness of breath) Musc Denies numbness and Denies tingling Neuro Denies dizziness, Denies headache(s), Denies numbness, Denies tingling, Denies paresthesias and Denies weakness Psych Denies anxiety and Denies depression Endo Denies fatigue Aller/Immun Denies wheezing Physical exam (Primary Care) Vital Signs: Last Vital Signs Pulse 67 07/23/23 11:45 BP 120/64 07/23/23 11:45 Pulse Ox 99 07/23/23 11:45 Oxygen Delivery Method Room Air 07/23/23 11:45 BMI result Body Mass Index 22.8 Tobacco/Smoking Status: Tobacco use Status Tobacco use date assessed 07/23/23 07/23/23 11:53 Patient Tobacco Use Status Current everyday Tobacco 07/23/23 11:50 Tobacco use type Cigarette 07/23/23 11:50 e-Cigarette/Vaping Use Never Used 07/23/23 11:50 Thrive Assessment: Date of Thrive Assessment Date Thrive assessed 09/27/22 07/23/23 11:50 Const General: no acute distress and well developed Nutritional Appearance: well nourished Orientation/consciousness: patient oriented x3 HENMT Head: Yes normocephalic and Yes atraumatic Eyes General: appearance normal, both eyes and all related structures Pupils: Equal, round and reactive pupils present EOM: EOMs intact bilaterally Resp Effort & Inspection: normal respiratory effort Auscultation: clear to auscultation bilaterally Cardio Rate: regular rate Rhythm: regular rhythm Heart sounds: S1 normal heart sound present, S2 normal heart sound present, no gallops, no murmurs and no rubs Neuro General: patient oriented x3 and gait normal Cranial nerves: Yes Equal, round and reactive pupils present Psych Affect: normal affect Results AMB Hemoglobin A1c AMB Hemoglobin A1c 5.7 % Last Edit by Breanna Rosenthal CMA on 07/23/23 12:05 Results Reviewed Results Reviewed: Laboratory Last Values Hgb A1c (Clinic) 5.7 % (4.0-6.0) 07/23/23 12:03 Assessment and Plan Assessment & Plan (1) Essential hypertension: Code(s): I10 - Essential (primary) hypertension Plan: Blood?pressure?is?well?controlled.??Goal?is?less?than?140/90 Continue?current?medication?regimen (2) Pre-diabetes: Code(s): R73.03 - Prediabetes Plan: A1c?has?risen?from?5.6%?to?5.7%;?pre?diabetes?range Recommended?diet?lower?in?sugars?and?starches Recommended?exercise. Patient?says?she?is?had?back?and?leg?pain?as?barriers?to?exercise?and?activity. Referred?to?physical?therapy?and?she?will?hopefully?be?able?to?get?so me?exercise?after?leg?and?back?pain?are?improved. (3) Back pain: Code(s): M54.9 - Dorsalgia, unspecified Plan: Start?physical?therapy (4) Leg pain: Code(s): M79.606 - Pain in leg, unspecified Plan: As?above,?start?physical?therapy Orders: Orders PT Evaluation and Treatment Today M54.9 - Dorsalgia, unspecified, M79.606 - Pain in leg, unspecified Comprehensive Clutier. Panel Fast Today Z00.00 - Encounter for general adult medical examination without abnormal findings Lipid Panel Today Z00.00 - Encounter for general adult medical examination without abnormal findings UA and rflx microscopic Today Z00.00 - Encounter for general adult medical examination without abnormal findings AMB Hemoglobin A1c Today Z13.9 - Encounter for screening, unspecified Complete Blood Count Auto Diff Today Z00.00 - Encounter for general adult medical examination without abnormal findings Microalbumin, Random (w Creat) Today I10 - Essential (primary) hypertension TSH reflex Free T4 Today Z00.00 - Encounter for general adult medical examination without abnormal findings Coding Level of Care Code Est Pt Level 4 (87896) Diagnoses Essential hypertension I10 Pre-diabetes R73.03 Back pain M54.9 Leg pain M79.606
== END 2023-07-23 13:41 | disposition home or self-care (01) ==
PROVIDERS: PCP Family Medicine; Visit Provider Family Medicine
DX: I10 Essential (primary) hypertension (principal); R73.03 Prediabetes; M54.9 Dorsalgia, unspecified; M79.606 Pain in leg, unspecified
CPT/HCPCS: 83036; 99214

== ENCOUNTER 2023-08-06 13:09 | Outpatient (AMB) | payer MEDICARE, SELFPAY ==
[2023-08-06 13:12] VITALS: BP 140/74; PULSE 68; BMI 23.4
--- NOTE | 2023-08-06 13:12 | MHC.OFFVIS ---
Intake Vital Signs 08/06/23 13:12 Height 5 ft 2.5 in Weight 129 lb 13.636 oz BMI 23.4 BP 140/74 H Blood Pressure Location Lt brachial Position Sitting Pulse 68 Pulse Source Pulse Oximeter Intake Visit Reasons: f/u osteoporosis and prolia-CONFIRMED Intake Note: Patient present for Osteoporosis and Prolia injection follow up. Employment Clerk Required: No Accompanied by: Self / Same As Patient Allergies meperidine [Demerol] Allergy (Intermediate, Verified 08/06/23 13:17) hives tetracycline Allergy (Intermediate, Verified 08/06/23 13:17) nausea and vomiting dexamethasone [From Decadron] Adverse Reaction (Severe, Verified 08/06/23 13:17) severe burning sensation Environmental - Pollen Allergy (Mild, Uncoded 07/23/23 11:49) Itchy Eyes HPI HPI Comments History of Present Illness Details 87 yo female today for fup visit , for osteoporosis management She is feeling well, she has no complaints today. She still smokes. She is her today for fup and Prolia Shot. She has no side effects of the medication. She is currently on Prolia last dose was 05/10/2020 , she has been on Prolia for 7 years started in 2014 She has other PMH of macular degeneration, GERD, hypertension, spinal stenosis, depression. She has history of positive old lumbar spine compression fracture, negative FH of fractures or osteoporosis, no nephrolithiasis, no steroids used, + smoker, anti seizures medications, + SSRI, + PPI. He has negative negative History of head or neck irradiation. Bisphosphonates use: She used alendronate for 2 years prior to Prolia. Couldn't tolerate oral BP Calcium intake: Caltrate 500 mg bid Vitamin D: 1000 IU daily. Herbal medications. none 10/12/2020 AP SPINE L1-L3 (excluding L4): The data of L1-L4 has been changed to exclude the L4 vertebral body, because degenerative changes at this level may cause overestimation of lumbar spine density. Current: BMD 1.185 g/cm2, Z-score 2.1, T-score 0.1, normal, 3.7% increase from previous, 19.2% increase from baseline (<5% change is not significant). Prior: BMD 1.143 g/cm2. Baseline: BMD 0.994 g/cm2. LEFT FEMUR, NECK: Current: BMD 0.641 g/cm2, Z-score -0.5, T-score -2.9, osteoporosis. Prior: BMD 0.697 g/cm2. Baseline: BMD 0.675 g/cm2. LEFT FEMUR, TOTAL: Current: BMD 0.682 g/cm2, Z-score -0.4, T-score -2.6, osteoporosis, 1.6% decrease from previous, 10.3% decrease from baseline (<5% change is not significant). Prior: BMD 0.693 g/cm2. Baseline: BMD 0.760 g/cm2. Laboratory Tests 11/23/19 05/30/20 05/30/20 12:05 12:10 Unknown Creatinine 0.79 Est GFR (Non-Af Am er) > 60 Calcium 9.3 Albumin 4.3 N-Telopeptide X-li nked 25 25-OH Vitamin D To cristiano 62.3 TSH 3rd Generation 3.21 No fractures or falls since last visit [facility] Medical History (Reviewed 07/23/23 @ 11:50 by Breanna Rosenthal [facility]) Smoker Peripheral neuropathy Low back pain Vitamin D deficiency Osteoporosis Surgical History H/O bilateral cataract extraction Hx of colonoscopy Hx of laminectomy History of total hysterectomy with bilateral salpingo-oophorectomy (BSO) Hx of appendectomy Family History Father No problems noted. Mother No problems noted. Other Hypertension Housing: Condominium Patient Tobacco Use Status: Current everyday Tobacco user Tobacco use type: Cigarette Cigarettes Per Day: 7 Years Smoked: 30+ e-Cigarette/Vaping Use: Never Used Second Hand Smoke Exposure: No service: No Current occupational status: retired Current occupational exposures/hazards: No Cognitive needs: No Hearing needs: No Vision needs: No Physical Exam Vital Signs: Last Vital Signs Pulse 68 08/06/23 13:12 BP 140/74 H 08/06/23 13:12 BMI result Body Mass Index 23.4 Assessment & Plan Assessment & Plan (1) Osteoporosis: Code(s): M81.0 - Age-related osteoporosis without current pathological fracture Plan: This is a 87-year-old white female with a history of osteoporosis and previous vertebral fracture treated for 2 years with bisphosphonate and currently on Prolia for 7 yrs . She had negative secondary workup Plan is to continue the Prolia, calcium and vitamin-D. Patient needs have calcium and creatinine done prior to Prolia injection. She has difficulty with transportation issues. She is going to attempt to go over the lab data blood work done today and possibly the Prolia injection next week. I did warn her not to delay the Prolia injections and the risk of doing so should as having a compression fracture or decreases mode density. She understands this Coding Level of Care Code Est Pt Level 3 (62302) Diagnoses Osteoporosis M81.0
== END 2023-08-06 13:53 | disposition home or self-care (01) ==
PROVIDERS: PCP Family Medicine; Visit Provider Internal Medicine Endocrinology, Diabetes & Metabolism
DX: M81.0 Age-related osteoporosis without current pathological fracture (principal)
CPT/HCPCS: 99213

== ENCOUNTER → 2023-08-06 13:09 | Outpatient (BNVA) | payer MEDICARE, SELFPAY | PROVIDERS: PCP Family Medicine; Visit Provider Internal Medicine Endocrinology, Diabetes & Metabolism | DX: M81.0 Age-related osteoporosis without current pathological fracture (principal) | CPT/HCPCS: 99212 ==

== ENCOUNTER 2023-08-16 12:07 | Outpatient (REF) | payer MEDICARE, SELFPAY ==
[2023-08-16 12:19] LABS: MANUAL DIFF FLAG NO
[2023-08-16 13:40] LABS: Basophils Absolute Auto 0.1 X10*3/uL (0.0-0.2); Basophils Percent Auto 0.5 % (0-2); Eosinophils Absolute Auto 0.1 X10*3/uL (0.0-0.4); Eosinophils Percent Auto 0.9 % (0-4); Hematocrit 41.8 % (37.0-47.0); Imm Gran Abs Auto 0.03 X10*3/uL (0.00-0.03); Imm Gran Pct Auto 0.3 % (0.0-0.4); Lymphocytes Absolute Auto 1.9 X10*3/uL (1.2-4.9); Lymphocytes Percent Auto 19.5 % (20-40); Mean Corpuscular HGB Conc 33.5 g/dl (31.0-35.0); Mean Corpuscular Volume 95.4 fL (80.0-98.0); Mean Platelet Volume 9.7 fL (9.4-12.3); Monocytes Absolute Auto 0.7 X10*3/uL (0.1-1.2); Monocytes Percent Auto 6.8 % (2-11); Neutrophils Absolute Auto 6.9 x10*3/uL (2.0-8.3); Platelet Count 296 X10*3/uL (160-400); Red Blood Count 4.38 X10*6/uL (4.20-5.50); Red Cell Distribution Width 13.5 % (11.0-16.0); White Blood Count 9.6 X10*3/uL (4.8-10.8)
[2023-08-16 14:13] LABS: Appearance Urine Clear; Color Urine Yellow; Glucose Urine UA Negative (Negative); Leukocyte Esterase Urine Trace (Negative); Nitrite Urine Negative (Negative); PH 8.5 (5.0-9.0); Specific Gravity - Urine 1.015 (1.005-1.025); UMIC TRIGGER UA YES; Urine Blood Negative (Negative); Urine Ketones Negative (Negative); Urine Protein Negative (Neg-Trace)
[2023-08-16 14:39] LABS: Alanine Aminotransferase 18 U/L (0-31); Alkaline Phosphatase 72 U/L (39-117); Anion Gap 15 (12-20); Aspartate Amino Transferase 20 U/L (5-31); Bilirubin Total 0.3 mg/dL (0.0-1.0); Blood Urea Nitrogen 25 mg/dL (9-16); Calcium 9.8 mg/dL (8.4-10.2); Carbon Dioxide 27 mmol/L (22-29); Chloride 102 mmol/L (96-108); Cholesterol 204 mg/dL (<200); Estimated Glomerular Filt Rate > 60; Glucose Fasting 109 mg/dL (60-99); Glucose Random 110 mg/dL (60-115); HDL Cholesterol 49 mg/dL (>40); LDL Cholesterol Calculated 132 mg/dL (<100); Potassium 4.5 mmol/L (3.3-5.1); Sodium 139 mmol/L (135-145); Total Protein 6.9 g/dL (6.5-8.0); Triglycerides 116 mg/dL (<150)
[2023-08-16 14:42] LABS: TSH reflex Free T4 2.35 uIU/mL (0.32-4.0)
[2023-08-16 14:44] LABS: Bacteria Urine None Seen (None Seen); Hyaline Casts Urine 0-2 /LPF (0-2); Other Crystals Urine Present; RBC Urine 0-2 /HPF (0-2); Squamous Epithelial Cell Urine 0-2 /HPF (0-2); WBC Urine 0-5 /HPF (0-5)
[2023-08-16 14:47] LABS: Creatinine Urine 72.75 mg/dL; Microalbum/Creatinine Ratio Ur 13.7 ug/mg cr (<30)
== END 2023-08-16 12:08 | disposition home or self-care (01) ==
LOC: HO.LAB 12:07
PROVIDERS: PCP Family Medicine; Visit Provider Internal Medicine Endocrinology, Diabetes & Metabolism
DX: Z00.00 Encounter for general adult medical examination without abnormal findings (principal); I10 Essential (primary) hypertension; M81.0 Age-related osteoporosis without current pathological fracture
CPT/HCPCS: 36415; 80048; 80053; 80061; 81001; 82043; 82570; 84443; 85025

== ENCOUNTER 2023-08-21 12:47 | Outpatient (AMB) | payer MEDICARE, SELFPAY ==
--- NOTE | 2023-08-21 13:09 | AM.OFFVISNUR ---
Intake Intake Visit Reasons: Prolia Allergies meperidine [Demerol] Allergy (Intermediate, Verified 08/06/23 13:17) hives tetracycline Allergy (Intermediate, Verified 08/06/23 13:17) nausea and vomiting dexamethasone [From Decadron] Adverse Reaction (Severe, Verified 08/06/23 13:17) severe burning sensation Environmental - Pollen Allergy (Mild, Uncoded 07/23/23 11:49) Itchy Eyes Office Meds Prolia 60 mg/mL subcutaneous syringe Performing Provider: Chicho Stanford MD Performing Location: [facility] [place] [facility] Administered by: James Hinson RN on 08/21/23 13:09 Dose Route Admin Location Dispensed Lot Number Expiration Date [facility] Field Superintendent 60 mg subcut L arm 1 mL [id number] 12/14/25 [facility] Comments: Patient signed consent form prior to injection. Denies side effects. Coding Assessment & Plan Assessment & Plan Orders: Orders AMB Denosumab Injection Patient Supplied Today M81.0 - Age-related osteoporosis without current pathological fracture
== END 2023-08-21 13:21 | disposition home or self-care (01) ==
PROVIDERS: PCP Family Medicine; Visit Provider Internal Medicine Endocrinology, Diabetes & Metabolism
DX: M81.0 Age-related osteoporosis without current pathological fracture (principal)

== ENCOUNTER → 2023-08-21 12:47 | Outpatient (BNVA) | payer MEDICARE, SELFPAY | PROVIDERS: PCP Family Medicine; Visit Provider Internal Medicine Endocrinology, Diabetes & Metabolism | DX: M81.0 Age-related osteoporosis without current pathological fracture (principal) | CPT/HCPCS: 96372; J0897 ==

== ENCOUNTER 2023-10-23 12:34 | Outpatient (REF) | payer MEDICARE, SELFPAY ==
--- NOTE | ~2023-10-23 | US_ITS ---
EXAMINATION: NONINVASIVE ASSESSMENT OF THE ARTERIES OF BOTH LOWER EXTREMITIES INCLUDING PVR EXAM AND BILATERAL LOWER EXTREMITY DUPLEX CLINICAL INFORMATION: PVD COMPARISON: None TECHNIQUE: Ankle pulse volume recordings, ankle pressure measurements and ankle brachial indices were obtained of the lower extremity arterial system bilaterally in addition to duplex Doppler techniques with wave form analysis and measurement of velocities in the common femoral, profunda femoral, superficial femoral, popliteal, tibial and peroneal arteries. The study was performed only at rest. FINDINGS: RIGHT LEG 1. Right Ankle-Brachial Index: 0.43 (higher of the DP/PT) >0.97-1.25 = normal - no significant arterial disease 0.75-0.96 = mild peripheral arterial disease 0.5-0.74 = moderate peripheral arterial disease <0.50 = severe peripheral arterial disease <0.30 = critical arterial disease 2. Segmental Pressures (mmHg): Brachial: 148 Ankle: PT not detectable, DP 65 3. PVR Waveforms: Ankle: monophasic 4. Direct Duplex: Common femoral artery: 117.9 cm/s, triphasic Profunda femoris artery: 120.3 cm/s, biphasic Superficial femoral artery (proximal): 258 cm/s, monophasic Superficial femoral artery (mid): 265.6 cm/s, monophasic Superficial femoral artery (distal): 43.5 cm/s, monophasic Popliteal artery: 206.8 cm/s, monophasic Posterior tibial artery: 13.1 cm/s, monophasic LEFT LE. Left Ankle-Brachial Index: 0.45 (higher of the DP/PT) >0.97-1.25 = normal - no significant arterial disease 0.75-0.96 = mild peripheral arterial disease 0.5-0.74 = moderate peripheral arterial disease <0.50 = severe peripheral arterial disease <0.30 = critical arterial disease 2. Segmental Pressures: Brachial: 152 Ankle: PT 65, DP 68 3. PVR Waveforms: Ankle: biphasic 4. Direct Duplex: Common femoral artery: 165 cm/s, biphasic Profunda femoris artery: 193.7 cm/s, biphasic Superficial femoral artery (proximal): 64.4 cm/s, monophasic Superficial femoral artery (mid): 0 cm/s, occluded Superficial femoral artery (distal): 0 cm/s, occluded Popliteal artery: 109.3 cm/s, monophasic Posterior tibial artery: 25.4 cm/s, monophasic US/US arterial duplex LE BI IMPRESSION: 1. Right RUFINA is 0.43 consistent with severe peripheral arterial disease. There is elevated velocity in the proximal to mid superficial femoral artery with monophasic flow throughout the right lower extremity. 2. Left RUFINA is 0.45 consistent with severe peripheral arterial disease. No detectable flow in the mid and distal superficial femoral artery. There is monophasic flow in the popliteal and posterior tibial arteries.
== END 2023-10-23 12:35 | disposition home or self-care (01) ==
LOC: HO.US 12:34
PROVIDERS: PCP Family Medicine; Visit Provider Surgery Vascular Surgery
DX: I73.9 Peripheral vascular disease, unspecified (principal)
CPT/HCPCS: 93923; 93925

== ENCOUNTER 2023-12-12 13:04 | Outpatient (AMB) | payer MEDICARE, SELFPAY ==
--- NOTE | 2023-12-12 13:05 | MHC.OFFVIS ---
Intake Vital Signs 12/12/23 13:08 Height 5 ft 2.5 in Weight 127 lb BMI 22.9 Intake Visit Reasons: F/U Art US 10/23/23 Intake Note: follow up Arterial US 10/23/23, pt states Right LE starts cramping before Left LE, states Left LE is worse w/ neuropathy. Pt states she can walk about 50 steps before cramping starts and doesn't struggle with stairs Accompanied by: Self / Same As Patient Allergies meperidine [Demerol] Allergy (Intermediate, Verified 12/12/23 13:12) hives tetracycline Allergy (Intermediate, Verified 12/12/23 13:12) nausea and vomiting dexamethasone [From Decadron] Adverse Reaction (Severe, Verified 12/12/23 13:12) severe burning sensation Environmental - Pollen Allergy (Mild, Uncoded 12/12/23 13:12) Itchy Eyes HPI F/U Art US 10/23/23 HPI Details Very pleasant 88-year-old female presents for follow-up regarding peripheral vascular disease. She has significant history of prior back injuries. In addition she is legally blind. She continues to smoke about a half a pack per day. She is able to walk around her house and do her basic daily activities. She is quite frail. She now presents for follow-up with noninvasive testing [facility] Medical History Smoker Peripheral neuropathy Low back pain Vitamin D deficiency Osteoporosis Surgical History H/O bilateral cataract extraction Hx of colonoscopy Hx of laminectomy History of total hysterectomy with bilateral salpingo-oophorectomy (BSO) Hx of appendectomy Family History Father No problems noted. Mother No problems noted. Other Hypertension Social History Housing: Condominium Patient Tobacco Use Status: Current everyday Tobacco user Tobacco use type: Cigarette Cigarettes Per Day: 7 Years Smoked: 30+ e-Cigarette/Vaping Use: Never Used Second Hand Smoke Exposure: No service: No Current occupational status: retired Current occupational exposures/hazards: No Cognitive needs: No Hearing needs: No Vision needs: No Review of Systems Const All systems reviewed & are unremarkable except as noted in HPI and below Reports no additional complaints ENT Reports Normal hearing present Card Denies chest pain, Denies chest pain at rest, Denies chest pain with activity and Denies pedal edema Resp Denies cough GI Denies abdominal pain Musc Denies abnormal gait, Denies muscle cramps and Denies radiating pain into limb Skin/Breast Denies skin ulcer and Denies wounds Neuro Reports Normal hearing present and Denies abnormal gait Psych Reports no additional complaints Physical Exam Vital Signs: BMI result Body Mass Index 22.9 Const General: cooperative, healthy appearing and comfortable Orientation/consciousness: oriented to person, oriented to place and oriented to time HEENT Head: Yes normal to inspection Neck Neck: Yes normal visual inspection Carotids: no bruits Chest Chest palpation & inspection: normal inspection of the chest Resp Effort & Inspection: normal respiratory effort and able to speak in complete sentences Auscultation: clear to auscultation bilaterally, no crackles, no rales, no rhonchi and no wheezes Cardio Other: Bilateral DP signals Rate: regular rate Rhythm: regular rhythm Heart sounds: S1 normal heart sound present and S2 normal heart sound present Bruits: no carotid bruits GI Inspection: Yes normal to inspection Skin Wounds: no wounds Hair: normal Neuro General: oriented to person, oriented to place and oriented to time Cranial nerves: Yes CN's II-XII intact bilaterally and Yes Normal hearing present Cognition (Neuro): normal cognition Motor exam (neuro): 5/5 motor strength present throughout Extrem Other: venous exam: No significant superficial varicosities or spider telangiectasias, minimal edema General: No clubbing, No cyanosis and No edema Psych Appearance: grossly normal Mental Status: mental status grossly normal Speech and movement: Normal speech and movement present Results Reviewed Results Reviewed: Noninvasive testing dated 10/23/2023 demonstrates RUFINA on the right of 0.43 and on the left of 0.45. Written report and images were reviewed. Assessment & Plan Assessment & Plan (1) PAD (peripheral artery disease): Code(s): I73.9 - Peripheral vascular disease, unspecified Plan: In short patient has significant peripheral vascular disease. At the current time she is quite frail with multiple medical comorbidities. She is able to function around her house. She has no evidence of active ulceration. Would not recommend any sort of intervention in this woman. Unless there is critical limb ischemia would manage conservatively. She can follow up with us on an as-needed basis. Thank you for allowing us to assist in her care. If there are any questions or concerns please do not hesitate to contact us. Coding Level of Care Code Est Pt Level 4 (15803) Diagnoses PAD (peripheral artery disease) I73.9
[2023-12-12 13:08] VITALS: BMI 22.9
== END 2023-12-12 13:24 | disposition home or self-care (01) ==
LOC: HO.HVS 13:04
PROVIDERS: PCP Family Medicine; Visit Provider Surgery Vascular Surgery
DX: I73.9 Peripheral vascular disease, unspecified (principal)
CPT/HCPCS: 99214

== ENCOUNTER → 2023-12-12 13:04 | Outpatient (BNVA) | payer MEDICARE, SELFPAY | PROVIDERS: PCP Family Medicine; Visit Provider Surgery Vascular Surgery | DX: I73.9 Peripheral vascular disease, unspecified (principal) | CPT/HCPCS: 99212 ==

== ENCOUNTER 2023-12-17 11:03 | Outpatient (AMB) | payer MEDICARE, SELFPAY ==
[2023-12-17 11:13] VITALS: BP 126/70; PULSE 75; O2SAT 100; BMI 23.1
--- NOTE | 2023-12-17 11:13 | MHC.PC.OV ---
Vital Signs 12/17/23 11:13 Height 5 ft 2.5 in Weight 128 lb 8 oz BMI 23.1 BP 126/70 Blood Pressure Location Lt brachial Position Sitting Pulse 75 Pulse Source Pulse Oximeter Pulse Oximetry (%) 100 Intake Visit Reasons: Extended exam with f/u labs and health maintenance Intake Note: Patient is here for extended exam today with follow up on labs and health maintenance. Allergies meperidine [Demerol] Allergy (Intermediate, Verified 12/17/23 11:21) hives tetracycline Allergy (Intermediate, Verified 12/17/23 11:21) nausea and vomiting dexamethasone [From Decadron] Adverse Reaction (Severe, Verified 12/17/23 11:21) severe burning sensation Environmental - Pollen Allergy (Mild, Uncoded 12/17/23 11:21) Itchy Eyes Tobacco use date assessed: 07/23/23 Fall risk assessment: No Falls in past year Last assessed Fall Risk: 12/17/23 Dental Screening Dental Screen Date: 12/17/23 Did you have a dental visit in the last 12 months?: No Did you have a dental problem in the last 6 months where you did not have access to dental care?: No Was dental information given to patient?: Patient declined HPI Extended exam with f/u labs and health maintenance HPI Details 88 y/o female presents for an extended exam with f/u labs and health maintenance. Blood pressure today 126/70. She is on lisinopril 5mg, labetalol 200mg b.i.d, hydrochlorothiazide 12.5mg daily. Follows up with vascular specialist Dr. Meier for peripheral artery disease. They do not recommend any sort of intervention unless there is critical limb ischemia. Pt reports hearing changes. [facility] Medical History Smoker Peripheral neuropathy Low back pain Vitamin D deficiency Osteoporosis Surgical History H/O bilateral cataract extraction Hx of colonoscopy Hx of laminectomy History of total hysterectomy with bilateral salpingo-oophorectomy (BSO) Hx of appendectomy Family History Father No problems noted. Mother No problems noted. Other Hypertension Social History (Reviewed 12/17/23 @ 11:22 by Breanna Rosenthal [facility] Patient Tobacco Use Status: Current everyday Tobacco user Tobacco use type: Cigarette Cigarettes Per Day: 7 Years Smoked: 30+ e-Cigarette/Vaping Use: Never Used Second Hand Smoke Exposure: No service: No Current occupational status: retired Current occupational exposures/hazards: No Cognitive needs: No Hearing needs: No Vision needs: No Questionnaire PHQ-9 Over the last 2 weeks, how often have you been bothered by any of the following problems? 1. Little interest or pleasure in doing things: not at all 2. Feeling down, depressed, or hopeless: not at all 3. Trouble falling or staying asleep, or sleeping too much: not at all 4. Feeling tired or having little energy: not at all 5. Poor appetite or overeating: not at all 6. Feeling bad about yourself - or that you are a failure or have let yourself or your family down: not at all 7. Trouble concentrating on things, such as reading the newspaper or watching television: not at all 8. Moving or speaking so slowly that other people could have noticed. Or the opposite - being so fidgety or restless that you have been moving around a lot more than usual: not at all 9. Thoughts that you would be better off or of hurting yourself in some way: not at all Total score: 0 Depression Screening Interpretation: Negative Depression Screening Done: Yes 76274 - PHQ-9 Billing: Yes Source: Developed by Drs. Chicho Hanson, Denia Salguero, Ceasar Lebron and colleagues, with an educational colt from [employer]. Thrive Questionnaire Date Thrive assessed: 12/17/23 I am a: Patient What is your living situation today?: I have a steady place to live Within the past 12 months, did the food you bought not last and you didn't have the money to get more?: Never true Within the past 12 months, did you worry whether your food would run out before you got money to buy more?: Never true Do you have trouble paying for medicines?: No Do you have trouble getting transportation to medical appointments?: No Do you have trouble paying your heating and electricity bill?: No Do you have trouble taking care of your child, family member or friend?: No Do you have trouble with day-to-day activities such as bathing, preparing meals, shopping, managing finances, etc.?: No Are you currently unemployed and looking for a job?: No Are you interested in more education?: No THRIVE Score: 0 AUDIT C Alcohol Use Questionnaire (AUDIT-C) 1. How often do you have a drink containing alcohol?: Monthly or less 2. How many drinks containing alcohol do you have on a typical day when you are drinking?: 1 or 2 3. How often do you have six or more drinks on one occasion?: Never Total Score: 1 RAHUL-7 AMB Questionnaire RAHUL-7 Date RAHUL - 7 assessed: 12/17/23 Feeling nervous, anxious, or on edge: 0 = Not at all Not being able to stop or control worryin = Not at all Worrying too much about different things: 0 = Not at all Trouble relaxin = Not at all Being so restless that it is hard to sit still: 0 = Not at all Becoming easily annoyed or irritable: 0 = Not at all Feeling afraid as if something awful might happen: 1 = Several days Total RAHUL-7 score (0-4 normal; 5-9 mild; 10-14 moderate; 15-21 severe): 1 Source: Developed by Drs. Chicho Hanson, Denia Salguero, Ceasar Lebron and colleagues, with an educational colt from [employer]. RAHUL-7 Assessment Billing RAHUL-7 Assessment Tool: RAHUL-7 Assessment 50692 Review of Systems Const Denies chills, Denies fatigue, Denies fever(s), Denies headache(s) and Denies weakness Eyes Denies change in vision ENT Denies dizziness, Denies headache(s), Denies hearing loss, Denies nasal congestion, Denies sinus pain, Denies sinus pressure and Denies sore throat Card Denies chest pain, Denies lightheadedness, Denies dyspnea and Denies other (palpitations) Resp Denies cough, Denies dyspnea and Denies wheezing GI Denies abdominal pain, Denies melena, Denies hematochezia, Denies change in bowel habits, Denies dyspepsia and Denies nausea Denies hematuria and Denies dysuria Musc Denies abnormal gait, Denies myalgias, Denies arthralgias, Denies numbness and Denies tingling Skin/Breast Denies rash, Denies unusual bruising and Denies wounds Neuro Denies abnormal gait, Denies dizziness, Denies headache(s), Denies memory loss, Denies numbness, Denies Sensory deficit (Neuro), Denies tingling and Denies weakness Psych Denies anxiety, Denies depression and Denies memory loss Endo Denies cold intolerance, Denies fatigue, Denies heat intolerance, Denies polydipsia and Denies polyuria Jevon/Lymph Denies easy bleeding and Denies easy bruising Aller/Immun Denies wheezing Physical exam (Primary Care) Vital Signs: Last Vital Signs Pulse 75 12/17/23 11:13 BP 126/70 12/17/23 11:13 Pulse Ox 100 12/17/23 11:13 BMI result Body Mass Index 23.1 Tobacco/Smoking Status: Tobacco use Status Tobacco use date assessed 07/23/23 12/17/23 11:18 Patient Tobacco Use Status Current everyday Tobacco 12/17/23 11:18 Tobacco use type Cigarette 12/17/23 11:18 e-Cigarette/Vaping Use Never Used 12/17/23 11:18 PHQ-9: PHQ-9 Score PHQ-9: Total score 0 12/17/23 11:57 Depression Screening Interpretation: Negative Thrive Assessment: Date of Thrive Assessment Date Thrive assessed 12/17/23 12/17/23 11:36 Const General: no acute distress, well developed, alert and awake Nutritional Appearance: well nourished Orientation/consciousness: patient oriented x3 HENMT Head: Yes normocephalic and Yes atraumatic Ears: hearing grossly normal bilaterally and TM's normal bilaterally General nose exam: Normal external nose present and Normal nares present Mouth: Normal oral and palatal mucosa present and moist mucous membranes Teeth and gingiva: dentition normal Throat: Yes posterior oropharynx normal Eyes General: appearance normal, both eyes and all related structures Pupils: Equal, round and reactive pupils present and Pupil accommodation reflex normal EOM: EOMs intact bilaterally Neck Neck: Yes normal visual inspection, Yes no lymphadenopathy and Yes trachea midline Thyroid: Thyroid normal Carotids: no bruits Lymphatic: no lymphadenopathy noted Chest Chest palpation & inspection: normal inspection of the chest Resp Effort & Inspection: normal respiratory effort Auscultation: clear to auscultation bilaterally Cardio Rate: regular rate Rhythm: regular rhythm Heart sounds: S1 normal heart sound present, S2 normal heart sound present, no gallops, no murmurs and no rubs Bruits: no abdominal aortic bruits and no carotid bruits GI Palpation (GI): No Abdominal aortic bruit present, Soft to palpation, nontender, No hepatosplenomegaly present and No Rebound tenderness present Auscultation: normal bowel sounds General: Yes no CVA tenderness Back/Spine/Pelvis Back: no CVA tenderness Cervical Spine: cervical ROM normal and No Cervical spine tenderness Thoracic/Lumbar Spine: thoraco-lumbar ROM normal, No pain with thoraco-lumbar ROM, No thoracic spinal tenderness and No lumbar spinal tenderness Skin Lesions: no lesions Rashes: no rashes Trauma: no lacerations or abrasions Wounds: no wounds Nails: normal Neuro General: patient oriented x3 and No gait normal Cranial nerves: Yes Equal, round and reactive pupils present Cognition (Neuro): normal cognition Gait exam (Neuro): gait abnormal Motor exam (neuro): 5/5 motor strength present throughout Sensory Exam: No Sensory deficit (Neuro) Deep tendon reflexes (DTR's): Right patellar reflex intensity grade: 2+ and Left patellar reflex intensity grade: 2+ Extrem General: Yes normal to inspection and No edema Psych Appearance: grossly normal Affect: normal affect Attitude: cooperative Thought process: Normal thought process present Assessment and Plan Assessment & Plan (1) Essential hypertension: Code(s): I10 - Essential (primary) hypertension Plan: Blood?pressure?is?controlled.??Goal?is?less?than?140/90 Continue?current?medication (2) PAD (peripheral artery disease): Code(s): I73.9 - Peripheral vascular disease, unspecified Plan: Patient?was?seen?by? Did?not?recommend?any?interventions?at?this?time Encouraged?exercise (3) Change in hearing: Code(s): H91.90 - Unspecified hearing loss, unspecified ear (4) Hypercholesterolemia: Code(s): E78.00 - Pure hypercholesterolemia, unspecified Plan: Mild?elevation?in?her?LDL?and?TC?cholesterol Encouraged?a?diet?lower?in?saturated?fats?and?cholesterol (5) Osteoporosis: Code(s): M81.0 - Age-related osteoporosis without current pathological fracture Plan: She?is?on?Prolia?and?followed?by? Follow-up?with?endocrinology?as?recommended (6) Tinnitus: Code(s): H93.19 - Tinnitus, unspecified ear Plan: Referred?for?audiology (7) Imbalance: Code(s): R26.89 - Other abnormalities of gait and mobility Plan: Had?ordered?physical?therapy.??Patient?wants?to?do?exercises?that?she?has?learned?from?prior?physical?therapy,?on?her?own. Advised?her?to?let?me?know?if?she?is?not?improving?or?worsening?and?would?help?her?resume?physical?therapy?or?refer?to?[facility]?for?at-home?physical?therapy. (8) Adult general medical exam: Code(s): Z00.00 - Encounter for general adult medical examination without abnormal findings Plan: 88-year-old?female?presents?for?an?extended?exam Encouraged?healthy?diet?with?active?lifestyle?and?exercise Orders: Referrals Audiology Referral H93.19 - Tinnitus, unspecified ear Coding Level of Care Code Est Pt Level 4 (41230) Diagnoses Essential hypertension I10 PAD (peripheral artery disease) I73.9 Change in hearing H91.90 Hypercholesterolemia E78.00 Osteoporosis M81.0 Tinnitus H93.19 Imbalance R26.89 Adult general medical exam Z00.00 Additional Codes RAHUL-7 Assessment Billing - RAHUL-7 Assessment Tool: RAHUL-7 Assessment 21649 ([id number])
== END 2023-12-17 12:15 | disposition home or self-care (01) ==
PROVIDERS: PCP Family Medicine; Visit Provider Family Medicine
DX: I10 Essential (primary) hypertension (principal); I73.9 Peripheral vascular disease, unspecified; H91.90 Unspecified hearing loss, unspecified ear; E78.00 Pure hypercholesterolemia, unspecified; M81.0 Age-related osteoporosis without current pathological fracture; H93.19 Tinnitus, unspecified ear; R26.89 Other abnormalities of gait and mobility; Z00.00 Encounter for general adult medical examination without abnormal findings
CPT/HCPCS: 99214

== ENCOUNTER 2024-02-19 11:43 | Outpatient (REF) | payer MEDICARE, SELFPAY ==
[2024-02-19 15:00] LABS: Appearance Urine Cloudy; Color Urine Yellow; Glucose Urine UA Negative (Negative); Leukocyte Esterase Urine Trace (Negative); Nitrite Urine Negative (Negative); Specific Gravity - Urine 1.015 (1.005-1.025); UMIC TRIGGER UA YES; Urine Blood Negative (Negative); Urine Ketones Negative (Negative); Urine Protein Negative (Neg-Trace)
[2024-02-19 15:20] LABS: Bacteria Urine None Seen (None Seen); Hyaline Casts Urine 0-2 /LPF (0-2); RBC Urine 0-2 /HPF (0-2); Squamous Epithelial Cell Urine 0-2 /HPF (0-2); WBC Urine 0-5 /HPF (0-5)
[2024-02-19 15:31] LABS: Albumin Level 4.1 g/dL (3.5-5.0); Anion Gap 12 (12-20); Blood Urea Nitrogen 22 mg/dL (9-16); Calcium 9.9 mg/dL (8.4-10.2); Carbon Dioxide 28 mmol/L (22-29); Chloride 101 mmol/L (96-108); Estimated Glomerular Filt Rate > 60; Glucose Random 114 mg/dL (60-115); Potassium 4.4 mmol/L (3.3-5.1); Sodium 137 mmol/L (135-145)
== END 2024-02-19 11:44 | disposition home or self-care (01) ==
LOC: HO.WFDLDS 11:43
PROVIDERS: Referring Provider Family Medicine; Visit Provider Internal Medicine Endocrinology, Diabetes & Metabolism
DX: Z00.00 Encounter for general adult medical examination without abnormal findings (principal); M81.0 Age-related osteoporosis without current pathological fracture
CPT/HCPCS: 36415; 80048; 81001; 81003; 82040

== ENCOUNTER 2024-02-24 13:42 | Outpatient (AMB) | payer MEDICARE, SELFPAY ==
[2024-02-24 13:44] VITALS: BP 144/72; PULSE 63; BMI 23.0
--- NOTE | 2024-02-24 13:44 | MHC.OFFVIS ---
Vital Signs 02/24/24 13:44 Height 5 ft 2.5 in Weight 127 lb 10.362 oz BMI 23.0 BP 144/72 H Blood Pressure Location Lt brachial Position Sitting Pulse 63 Pulse Source Pulse Oximeter Intake Visit Reasons: osteoporosis-confirmed Intake Note: Patient presents today for Osteoporosis follow up visit. Program Therapist Required: No Accompanied by: Self / Same As Patient Allergies meperidine [Demerol] Allergy (Intermediate, Verified 02/24/24 13:52) hives tetracycline Allergy (Intermediate, Verified 02/24/24 13:52) nausea and vomiting dexamethasone [From Decadron] Adverse Reaction (Severe, Verified 02/24/24 13:52) severe burning sensation Environmental - Pollen Allergy (Mild, Uncoded 02/24/24 13:52) Itchy Eyes HPI Comments Details: 87 yo female today for fup visit , for osteoporosis management She is feeling well, she has no complaints today. She still smokes. She is her today for fup and Prolia Shot. She has no side effects of the medication. She is currently on Prolia last dose was 05/10/2020 , she has been on Prolia for 7 years started in 2014 She has other PMH of macular degeneration, GERD, hypertension, spinal stenosis, depression. She has history of positive old lumbar spine compression fracture, negative FH of fractures or osteoporosis, no nephrolithiasis, no steroids used, + smoker, anti seizures medications, + SSRI, + PPI. He has negative negative History of head or neck irradiation. Bisphosphonates use: She used alendronate for 2 years prior to Prolia. Couldn't tolerate oral BP Calcium intake: Caltrate 500 mg bid Vitamin D: 1000 IU daily. Herbal medications. none 10/12/2020 AP SPINE L1-L3 (excluding L4): The data of L1-L4 has been changed to exclude the L4 vertebral body, because degenerative changes at this level may cause overestimation of lumbar spine density. Current: BMD 1.185 g/cm2, Z-score 2.1, T-score 0.1, normal, 3.7% increase from previous, 19.2% increase from baseline (<5% change is not significant). Prior: BMD 1.143 g/cm2. Baseline: BMD 0.994 g/cm2. LEFT FEMUR, NECK: Current: BMD 0.641 g/cm2, Z-score -0.5, T-score -2.9, osteoporosis. Prior: BMD 0.697 g/cm2. Baseline: BMD 0.675 g/cm2. LEFT FEMUR, TOTAL: Current: BMD 0.682 g/cm2, Z-score -0.4, T-score -2.6, osteoporosis, 1.6% decrease from previous, 10.3% decrease from baseline (<5% change is not significant). Prior: BMD 0.693 g/cm2. Baseline: BMD 0.760 g/cm2. Laboratory Tests 11/23/19 05/30/20 05/30/20 12:05 12:10 Unknown Creatinine 0.79 Est GFR (Non-Af Amer) > 60 Calcium 9.3 Albumin 4.3 N-Telopeptide X-linked 25 25-OH Vitamin D Total 62.3 TSH 3rd Generation 3.21 No fractures or falls since last visit . Some intermittent low back pain. Does not fell like a fx [facility] Medical History Smoker Peripheral neuropathy Low back pain Vitamin D deficiency Osteoporosis Surgical History H/O bilateral cataract extraction Hx of colonoscopy Hx of laminectomy History of total hysterectomy with bilateral salpingo-oophorectomy (BSO) Hx of appendectomy Family History Father No problems noted. Mother No problems noted. Other Hypertension Social History Housing: Condominium Patient Tobacco Use Status: Current everyday Tobacco user Tobacco use type: Cigarette Cigarettes Per Day: 7 Years Smoked: 30+ e-Cigarette/Vaping Use: Never Used Second Hand Smoke Exposure: No service: No Current occupational status: retired Current occupational exposures/hazards: No Cognitive needs: No Hearing needs: No Vision needs: No Physical Exam Vital Signs: Last Vital Signs Pulse 63 02/24/24 13:44 BP 144/72 H 02/24/24 13:44 BMI result Body Mass Index 23.0 Assessment & Plan Assessment & Plan (1) Osteoporosis: Code(s): M81.0 - Age-related osteoporosis without current pathological fracture Category: Medical Plan: This is a 87-year-old white female with a history of osteoporosis and previous vertebral fracture treated for 2 years with bisphosphonate and currently on Prolia for 7 yrs . She had negative secondary workup Plan is to continue the Prolia. Injection given today. , calcium and vitamin-D. Patient told to alert primary practitioner about back pain if becomes worse could consider imaging the lumbar spine to see if any new fractures Coding Level of Care Code Est Pt Level 3 (38096) Diagnoses Osteoporosis M81.0
--- NOTE | 2024-02-24 14:06 | AM.OFFVISNUR ---
Intake Vital Signs 02/24/24 13:44 Height 5 ft 2.5 in Weight 127 lb 10.362 oz BMI 23.0 BP 144/72 H Blood Pressure Location Lt brachial Position Sitting Pulse 63 Pulse Source Pulse Oximeter Intake Visit Reasons: osteoporosis-confirmed Allergies meperidine [Demerol] Allergy (Intermediate, Verified 02/24/24 13:52) hives tetracycline Allergy (Intermediate, Verified 02/24/24 13:52) nausea and vomiting dexamethasone [From Decadron] Adverse Reaction (Severe, Verified 02/24/24 13:52) severe burning sensation Environmental - Pollen Allergy (Mild, Uncoded 02/24/24 13:52) Itchy Eyes Office Meds Prolia 60 mg/mL subcutaneous syringe Performing Provider: Chicho Stanford MD Performing Location: [facility] [place] Endocrinology Administered by: Lindsey Zuñiga RN on 02/24/24 14:07 Dose Route Admin Location Dispensed Lot Number Expiration Date 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 Pt declines any adverse reactions to past prolia injections. Pt tolerated well. Coding Diagnoses Osteoporosis M81.0 Assessment & Plan Assessment & Plan (1) Osteoporosis: Code(s): M81.0 - Age-related osteoporosis without current pathological fracture Category: Medical Orders: Orders AMB Denosumab Injection Patient Supplied Today M81.0 - Age-related osteoporosis without current pathological fracture Medications: New Prolia (denosumab) 60 mg subcut ONCE 1 mL 0RF NS M81.0 - Age-related osteoporosis without current pathological fracture
--- NOTE | 2024-02-24 14:10 | AM.OFFVISNUR ---
Intake Vital Signs 02/24/24 13:44 Height 5 ft 2.5 in Weight 127 lb 10.362 oz BMI 23.0 BP 144/72 H Blood Pressure Location Lt brachial Position Sitting Pulse 63 Pulse Source Pulse Oximeter Intake Visit Reasons: osteoporosis-confirmed Allergies meperidine [Demerol] Allergy (Intermediate, Verified 02/24/24 13:52) hives tetracycline Allergy (Intermediate, Verified 02/24/24 13:52) nausea and vomiting dexamethasone [From Decadron] Adverse Reaction (Severe, Verified 02/24/24 13:52) severe burning sensation Environmental - Pollen Allergy (Mild, Uncoded 02/24/24 13:52) Itchy Eyes Office Meds Prolia 60 mg/mL subcutaneous syringe Performing Provider: Chicho Stanford MD Performing Location[place] [facility] [place] Administered by: Lindsey Zuñiga RN on 02/24/24 14:07 Dose Route Admin Location Dispensed Lot Number Expiration Date NDC Transfer Engineer 60 mg subcut left upper arm 1 mL [id number] 07/16/26 16440-175-00 AMGEN Comments: Consent form signed by patient. Pt declines any adverse reactions to past prolia injections. Pt tolerated well. Coding Diagnoses Osteoporosis M81.0 Assessment & Plan Assessment & Plan (1) Osteoporosis: Code(s): M81.0 - Age-related osteoporosis without current pathological fracture Category: Medical Orders: Orders AMB Denosumab Injection Patient Supplied Today M81.0 - Age-related osteoporosis without current pathological fracture
== END 2024-02-24 14:06 | disposition home or self-care (01) ==
PROVIDERS: PCP Family Medicine; Visit Provider Internal Medicine Endocrinology, Diabetes & Metabolism
DX: M81.0 Age-related osteoporosis without current pathological fracture (principal)
CPT/HCPCS: 99213

== ENCOUNTER → 2024-02-24 13:42 | Outpatient (BNVA) | payer MEDICARE, SELFPAY | PROVIDERS: PCP Family Medicine; Visit Provider Internal Medicine Endocrinology, Diabetes & Metabolism | DX: M81.0 Age-related osteoporosis without current pathological fracture (principal); Z79.620 Long term (current) use of immunosuppressive biologic | CPT/HCPCS: 96372; 99212; J0897 ==

== ENCOUNTER 2024-04-23 12:55 | Outpatient (AMB) | payer MEDICARE, SELFPAY ==
--- NOTE | 2024-04-23 13:23 | MHC.PC.OV ---
Vital Signs 04/23/24 13:28 Height 5 ft 2.5 in Weight 124 lb 4 oz BMI 22.4 BP 130/70 Blood Pressure Location Lt brachial Position Sitting Respiration 16 Pulse 70 Pulse Source Pulse Oximeter Temp 97.7 F Temp Source Oral Pulse Oximetry (%) 99 Oxygen Delivery Method Room Air Intake Visit Reasons: f/u hypertension, chronic conditions Intake Note: follow up b/p Allergies meperidine [Demerol] Allergy (Intermediate, Verified 04/23/24 13:26) hives tetracycline Allergy (Intermediate, Verified 04/23/24 13:26) nausea and vomiting dexamethasone [From Decadron] Adverse Reaction (Severe, Verified 04/23/24 13:26) severe burning sensation Environmental - Pollen Allergy (Mild, Uncoded 02/24/24 13:52) Itchy Eyes Medication List - Last Reconciled 04/23/24 by Mike Vegas MD aspirin (Adult Aspirin Regimen) 81 mg PO DAILY calcium carbonate-vitamin D3 600 mg-5 mcg (200 unit) 1 tab PO DAILY cholecalciferol (vitamin D3) 25 mcg PO DAILY denosumab (Prolia) 60 mg subcut [id number] famotidine (Pepcid) 20 mg PO DAILY PRN hydrochlorothiazide 12.5 mg PO DAILY 90 days ibuprofen 400 mg PO Q8H PRN labetalol 200 mg PO BID lisinopril 5 mg PO DAILY 90 days vitamins A,C,Z-bvxl-lojwds 2,148 mcg-113 mg-45 mg-17.4mg (PreserVision AREDS) 1 tab PO BID Tobacco use date assessed: 07/23/23 Dental Screening Dental Screen Date: 12/17/23 HPI f/u hypertension, chronic conditions HPI Details 88 y/o female presents to f/u hypertension, pre-diabetes and chronic conditions. Blood pressure today 130/70. She is on lisinopril 5mg, hydrochlorothiazide 12.5mg daily. Also on labetalol 200mg b.i.d. Last A1c in July 5.7%. A1c today 04/23/24 is She has been watching her diet. [facility] Medical History Smoker Peripheral neuropathy Low back pain Vitamin D deficiency Osteoporosis Surgical History H/O bilateral cataract extraction Hx of colonoscopy Hx of laminectomy History of total hysterectomy with bilateral salpingo-oophorectomy (BSO) Hx of appendectomy Family History Father No problems noted. Mother No problems noted. Other Hypertension [facility] Patient Tobacco Use Status: Current everyday Tobacco user Tobacco use type: Cigarette Cigarettes Per Day: 7 Years Smoked: 30+ e-Cigarette/Vaping Use: Never Used Second Hand Smoke Exposure: No service: No Current occupational status: retired Current occupational exposures/hazards: No Cognitive needs: No Hearing needs: No Vision needs: No Questionnaire Thrive Questionnaire Date Thrive assessed: 12/17/23 RAHUL-7 AMB Questionnaire RAHUL-7 Date RAHUL - 7 assessed: 12/17/23 Source: Developed by Drs. Chicho Hanson, Denia Salguero, Ceasar Lebron and colleagues, with an educational colt from [employer]. Review of Systems Const Denies chills, Denies fatigue, Denies fever(s), Denies headache(s) and Denies weakness ENT Denies dizziness and Denies headache(s) Card Denies dyspnea Resp Denies cough, Denies dyspnea, Denies wheezing and Denies other (shortness of breath) Musc Denies numbness and Denies tingling Neuro Denies dizziness, Denies headache(s), Denies numbness, Denies tingling and Denies weakness Psych Denies anxiety and Denies depression Endo Denies fatigue Aller/Immun Denies wheezing Physical exam (Primary Care) Vital Signs: Last Vital Signs Temp 97.7 F 04/23/24 13:28 Pulse 70 04/23/24 13:28 Resp 16 04/23/24 13:28 BP 130/70 04/23/24 13:28 Pulse Ox 99 04/23/24 13:28 Oxygen Delivery Method Room Air 04/23/24 13:28 BMI result Body Mass Index 22.4 Tobacco/Smoking Status: Tobacco use Status Tobacco use date assessed 07/23/23 04/23/24 13:24 Patient Tobacco Use Status Current everyday Tobacco 04/23/24 13:24 Tobacco use type Cigarette 08/08/24 13:24 e-Cigarette/Vaping Use Never Used 04/23/24 13:24 Thrive Assessment: Date of Thrive Assessment Date Thrive assessed 12/17/23 04/23/24 13:24 Const General: well developed; No acute distress Nutritional Appearance: well nourished Orientation/consciousness: patient oriented x3 HENNJ Head: Yes normocephalic and Yes atraumatic Eyes General: appearance normal, both eyes and all related structures Pupils: Equal, round and reactive pupils present EOM: EOMs intact bilaterally Resp Effort & Inspection: normal respiratory effort Auscultation: clear to auscultation bilaterally Cardio Rate: regular rate Rhythm: regular rhythm Heart sounds: S1 normal heart sound present, S2 normal heart sound present, no gallops, no murmurs and no rubs Neuro General: patient oriented x3 and gait normal Cranial nerves: Yes Equal, round and reactive pupils present Psych Affect: normal affect Assessment and Plan Assessment & Plan (1) Essential hypertension: Code(s): I10 - Essential (primary) hypertension Plan: Blood?sugar?is?controlled.??Goal?is?less?than?140/90 Continue?current?medication (2) Pre-diabetes: Code(s): R73.03 - Prediabetes Plan: A1c?5.6%?is?at?top?normal?range?and?improved?from?prior Continue?to?work?at?diet?lower?in?sugars?and?starches Will?follow (3) Lower extremity weakness: Code(s): R29.898 - Other symptoms and signs involving the musculoskeletal system Plan: Ongoing?lower?extremity?weakness?with?imbalance?and?patient?is?using?her?cane Restart?physical?therapy Orders: Orders PT Evaluation and Treatment Today M54.9 - Dorsalgia, unspecified, M79.606 - Pain in leg, unspecified, R26.89 - Other abnormalities of gait and mobility, R29.898 - Other symptoms and signs involving the musculoskeletal system Coding Level of Care Code Est Pt Level 3 (96657) Diagnoses Essential hypertension I10 Pre-diabetes R73.03 Lower extremity weakness R29.898
[2024-04-23 13:28] VITALS: BP 130/70; PULSE 70; RESP 16; TEMP 36.5; O2SAT 99; BMI 22.4
== END 2024-04-23 13:47 | disposition home or self-care (01) ==
PROVIDERS: PCP Family Medicine; Visit Provider Family Medicine
DX: I10 Essential (primary) hypertension (principal); R73.03 Prediabetes; R29.898 Other symptoms and signs involving the musculoskeletal system
CPT/HCPCS: 99213

== ENCOUNTER 2024-08-24 11:39 | Outpatient (REF) | payer MEDICARE, SELFPAY ==
[2024-08-24 13:11] LABS: Anion Gap 13 (12-20); Blood Urea Nitrogen 24 mg/dL (9-16); Carbon Dioxide 28 mmol/L (22-29); Chloride 101 mmol/L (96-108); Estimated Glomerular Filt Rate > 60; Glucose Random 125 mg/dL (60-115); Potassium 4.3 mmol/L (3.3-5.1); Sodium 138 mmol/L (135-145)
== END 2024-08-24 11:40 | disposition home or self-care (01) ==
LOC: HO.LAB 11:39
PROVIDERS: PCP Family Medicine; Visit Provider Internal Medicine Endocrinology, Diabetes & Metabolism
DX: M81.0 Age-related osteoporosis without current pathological fracture (principal)
CPT/HCPCS: 36415; 80048

== ENCOUNTER 2024-08-27 13:07 | Outpatient (AMB) | payer MEDICARE, SELFPAY ==
[2024-08-27 13:10] VITALS: BP 122/68; PULSE 64; BMI 22.3
--- NOTE | 2024-08-27 13:10 | A.OFFVIS_ITS ---
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 She still smokes. She is her today for fup and Prolia Shot. She has no side effects of the medication. She is currently on Prolia last dose was 05/10/2020 , she has been on Prolia for 7 years started in 2015 She has other PMH of macular degeneration, GERD, hypertension, spinal stenosis, depression. She has history of positive old lumbar spine compression fracture, negative FH of fractures or osteoporosis, no nephrolithiasis, no steroids used, + smoker, anti seizures medications, + SSRI, + PPI. He has negative negative History of head or neck irradiation. Bisphosphonates use: She used alendronate for 2 years prior to Prolia. Couldn't tolerate oral BP Calcium intake: Caltrate 500 mg bid Vitamin D: 1000 IU daily. Herbal medications. none 10/12/2020 AP SPINE L1-L3 (excluding L4): The data of L1-L4 has been changed to exclude the L4 vertebral body, because degenerative changes at this level may cause overestimation of lumbar spine density. Current: BMD 1.185 g/cm2, Z-score 2.1, T-score 0.1, normal, 3.7% increase from previous, 19.2% increase from baseline (<5% change is not significant). Prior: BMD 1.143 g/cm2. Baseline: BMD 0.994 g/cm2. LEFT FEMUR, NECK: Current: BMD 0.641 g/cm2, Z-score -0.5, T-score -2.9, osteoporosis. Prior: BMD 0.697 g/cm2. Baseline: BMD 0.675 g/cm2. LEFT FEMUR, TOTAL: Current: BMD 0.682 g/cm2, Z-score -0.4, T-score -2.6, osteoporosis, 1.6% decrease from previous, 10.3% decrease from baseline (<5% change is not significant). Prior: BMD 0.693 g/cm2. Baseline: BMD 0.760 g/cm2. Laboratory Tests 11/23/19 05/30/20 05/30/20 12:05 12:10 Unknown Creatinine 0.79 Est GFR (Non-Af Amer) > 60 Calcium 9.3 Albumin 4.3 N-Telopeptide X-linked 25 25-OH Vitamin D Total 62.3 TSH 3rd Generation 3.21 No fractures or falls since last visit . On Prolia for 9 yrs . Due for dose today . Tolerating Prolia without problems PFSH Medical History Smoker Peripheral neuropathy Low back pain Vitamin D deficiency Osteoporosis Surgical History H/O bilateral cataract extraction Hx of colonoscopy Hx of laminectomy History of total hysterectomy with bilateral salpingo-oophorectomy (BSO) Hx of appendectomy Family History Father No problems noted. Mother No problems noted. Other Hypertension Social History Housing: Condominium Patient Tobacco Use Status: Current everyday Tobacco user Tobacco use type: Cigarette Cigarettes Per Day: 7 Years Smoked: 30+ e-Cigarette/Vaping Use: Never Used Second Hand Smoke Exposure: No service: No Current occupational status: retired Current occupational exposures/hazards: No Cognitive needs: No Hearing needs: No Vision needs: No Physical Exam Vital Signs: BMI result Body Mass Index 22.3 Assessment & Plan Assessment & Plan (1) Osteoporosis: Code(s): M81.0 - Age-related osteoporosis without current pathological fracture Category: Medical Plan: This is a 88-year-old white female with a history of osteoporosis and previous vertebral fracture treated for 2 years with bisphosphonate and currently on Prolia for 8 yrs . She had negative secondary workup Plan is to continue the Prolia. Injection given today. , calcium and vitamin-D. Will recheck DEXA in about 5 months' time. Will have patient return around that time and if bone density is stable was significantly improved, would consider transitioning at that point to intravenous bisphosphonate namely Reclast as patient has been a longstanding Prolia and could not tolerate her oral bisphosphonate in the past Orders: Orders XR DEXA axial skeleton 4 Months M81.0 - Age-related osteoporosis without current pathological fracture Coding Level of Care Code Est Pt Level 3 (10350) Diagnoses Osteoporosis M81.0
== END 2024-08-27 16:21 | disposition home or self-care (01) ==
PROVIDERS: PCP Family Medicine; Visit Provider Internal Medicine Endocrinology, Diabetes & Metabolism
DX: M81.0 Age-related osteoporosis without current pathological fracture (principal)
CPT/HCPCS: 99213

== ENCOUNTER → 2024-08-27 13:07 | Outpatient (BNVA) | payer MEDICARE, SELFPAY | PROVIDERS: PCP Family Medicine; Visit Provider Internal Medicine Endocrinology, Diabetes & Metabolism | DX: M81.0 Age-related osteoporosis without current pathological fracture (principal) | CPT/HCPCS: 96372; 99212; J0897 ==

== ENCOUNTER 2024-12-17 13:16 | Outpatient (AMB) | payer MEDICARE, SELFPAY ==
--- NOTE | 2024-12-17 13:18 | A.OFFPC_ITS ---
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 BP today 122/58, 68p. She is on labetalol 200mg b.i.d, HCTZ 12.5mg, lisinopril 5mg daily. Ongoing back pain, LE weakness and imbalance. She notes she has not been contacted by PT yet. [facility] Medical History Smoker Peripheral neuropathy Low back pain Vitamin D deficiency Osteoporosis Surgical History H/O bilateral cataract extraction Hx of colonoscopy Hx of laminectomy History of total hysterectomy with bilateral salpingo-oophorectomy (BSO) Hx of appendectomy Family History Father No problems noted. Mother No problems noted. Other Hypertension Social History Housing: Condominium Patient Tobacco Use Status: Current everyday Tobacco user Tobacco use type: Cigarette Cigarettes Per Day: 7 Years Smoked: 30+ e-Cigarette/Vaping Use: Never Used Second Hand Smoke Exposure: No service: No Current occupational status: retired Current occupational exposures/hazards: No Cognitive needs: No Hearing needs: No Vision needs: No Questionnaire Thrive Questionnaire Date Thrive assessed: 12/17/23 I am a: Patient What is your living situation today?: I have a steady place to live Within the past 12 months, did the food you bought not last and you didn't have the money to get more?: Never true Within the past 12 months, did you worry whether your food would run out before you got money to buy more?: Never true Do you have trouble paying for medicines?: No Do you have trouble getting transportation to medical appointments?: Yes Do you have trouble paying your heating and electricity bill?: No Do you have trouble taking care of your child, family member or friend?: No Do you have trouble with day-to-day activities such as bathing, preparing meals, shopping, managing finances, etc.?: No Are you currently unemployed and looking for a job?: No Are you interested in more education?: Yes Please select the resources that you would like help with: Transportation Currently or been in a relationship where the following occur: No concerns reported THRIVE Score: 1 RAHUL-7 AMB Questionnaire RAHUL-7 Date RAHUL - 7 assessed: 12/17/23 Feeling nervous, anxious, or on edge: 1 = Several days Source: Developed by Drs. Chicho Hanson, Denia Salguero, Ceasar Lebron and colleagues, with an educational colt from [employer]. Review of Systems Const Denies chills, Denies fatigue, Denies fever(s), Denies headache(s) and Denies weakness ENT Denies dizziness and Denies headache(s) Card Denies dyspnea Resp Denies cough, Denies dyspnea, Denies wheezing and Denies other (shortness of breath) Musc Denies numbness and Denies tingling Neuro Denies dizziness, Denies headache(s), Denies numbness, Denies tingling and Denies weakness Psych Denies anxiety and Denies depression Endo Denies fatigue Aller/Immun Denies wheezing Physical exam (Primary Care) Vital Signs: Last Vital Signs Temp 97.7 F 12/17/24 13:27 Pulse 68 12/17/24 13:27 Resp 10 L 12/17/24 13:27 BP 122/58 L 12/17/24 13:27 Pulse Ox 100 12/17/24 13:27 Oxygen Delivery Method Room Air 12/17/24 13:27 BMI result Body Mass Index 21.8 Tobacco/Smoking Status: Tobacco use Status Tobacco use date assessed 07/23/23 12/17/24 13:19 Patient Tobacco Use Status Current everyday Tobacco 12/17/24 13:19 Tobacco use type Cigarette 12/17/24 13:19 e-Cigarette/Vaping Use Never Used 12/17/24 13:19 Thrive Assessment: Date of Thrive Assessment Date Thrive assessed 12/17/23 12/17/24 13:19 Currently or been in a relationship where the following occur: No concerns reported Const General: well developed; No acute distress Nutritional Appearance: well nourished Orientation/consciousness: patient oriented x3 HENMT Head: Yes normocephalic and Yes atraumatic Eyes General: appearance normal, both eyes and all related structures Pupils: Equal, round and reactive pupils present EOM: EOMs intact bilaterally Resp Effort & Inspection: normal respiratory effort Neuro General: patient oriented x3 and gait normal Cranial nerves: Yes Equal, round and reactive pupils present Psych Affect: normal affect Coding Level of Care Code Est Pt Level 4 (88146) Diagnoses Essential hypertension I10 Pre-diabetes R73.03 Lower extremity weakness R29.898 Imbalance R26.89 Assessment & Plan Assessment & Plan (1) Essential hypertension: Code(s): I10 - Essential (primary) hypertension Category: Medical Plan: Blood?pressure?is?controlled.??Goal?is?less?than?140/90 Continue?current?medications (2) Pre-diabetes: Code(s): R73.03 - Prediabetes Category: Medical Plan: A1c?has?improved?from?5.6%?at?last?check,?to?5.3%. Continue?working?on?a?diet?low?in?sugars?and?starches (3) Lower extremity weakness: Code(s): R29.898 - Other symptoms and signs involving the musculoskeletal system Category: Medical (4) Imbalance: Code(s): R26.89 - Other abnormalities of gait and mobility Category: Medical Plan Ongoing?lower?extremity?weakness?back?pain?and?imbalance. Had?o rdered?physical?therapy?but?patient?says?she?was?never?contacted.??Ordering?this ?again?and?I?am?asking?the?office?to?help?get?her?scheduled. Patient?has?upcoming?appointments?with?her?endocrinologis t?regarding?osteoporosis?in?bone?density?screening. Orders: Orders UA CC w/rflx Micro + Cult Today Z00.00 - Encounter for general adult medical examination without abnormal findings PT Evaluation and Treatment Today M54.9 - Dorsalgia, unspecified, M79.606 - Pain in leg, unspecified, R26.89 - Other abnormalities of gait and mobility, R29.898 - Other symptoms and signs involving the musculoskeletal system Comprehensive [place]. Panel Fast Today Z00.00 - Encounter for general adult medical examination without abnormal findings Complete Blood Count Auto Diff Today Z00.00 - Encounter for general adult medical examination without abnormal findings Microalbumin, Random (w Creat) Today I10 - Essential (primary) hypertension Lipid Panel Today Z00.00 - Encounter for general adult medical examination without abnormal findings TSH reflex Free T4 Today Z00.00 - Encounter for general adult medical examination without abnormal findings
[2024-12-17 13:27] VITALS: BP 122/58; PULSE 68; RESP 10; TEMP 36.5; O2SAT 100; BMI 21.8
== END 2024-12-17 13:39 | disposition home or self-care (01) ==
LOC: HO.HMCFM 13:17
PROVIDERS: PCP Family Medicine; Visit Provider Family Medicine
DX: I10 Essential (primary) hypertension (principal); R73.03 Prediabetes; R29.898 Other symptoms and signs involving the musculoskeletal system; R26.89 Other abnormalities of gait and mobility

== ENCOUNTER → 2024-12-17 13:16 | Outpatient (BNVA) | payer MEDICARE, SELFPAY | PROVIDERS: PCP Family Medicine; Visit Provider Family Medicine | DX: I10 Essential (primary) hypertension (principal); R73.03 Prediabetes; R26.89 Other abnormalities of gait and mobility; R29.898 Other symptoms and signs involving the musculoskeletal system | CPT/HCPCS: 83036; 99212 ==

== ENCOUNTER → 2025-02-16 13:00 | Outpatient (BNV) | payer MEDICARE, SELFPAY | PROVIDERS: PCP Family Medicine; Visit Provider Radiology Diagnostic Radiology | DX: E28.39 Other primary ovarian failure (principal) | CPT/HCPCS: 77080 ==

== ENCOUNTER 2025-02-16 13:07 | Outpatient (REF) | payer MEDICARE, SELFPAY ==
--- NOTE | ~2025-02-16 | MM_ITS ---
EXAMINATION: DXA BONE DENSITY AXIAL HISTORY: M81.0 - Age-related osteoporosis without current pathological fracture TECHNIQUE: uSamp Dual energy absorptiometry (DEXA) of the lumbar spine, total left hip, and femoral neck was performed. COMPARISON: Comparison is made with the prior examination dated 02/12/2023. FINDINGS: The bone mineral density of the lumbar spine is 1.250, corresponding to a T-score of 0.7, and a Z-score of 2.9. This is indicative of normal bone mineral density. This represents a BMD change of 4.7% compared to the prior exam. This is statistically significant. The bone mineral density of the left total hip is 0.718, corresponding to a T-score of -2.3, and a Z-score of 0.3. This is indicative of osteopenia. This represents a BMD change of -1.9% compared to the prior exam. This is not statistically significant. The bone mineral density of the left femoral neck is 0.699, corresponding to a T-score of -2.6, and a Z-score of 0.0. This is indicative of osteoporosis. This represents a BMD change of 1.2% compared to the prior exam. MM/XR DEXA axial skeleton IMPRESSION: Based on bone mineral density, and according to World Health Organization (WHO) criteria, the diagnosis is consistent with osteoporosis. All bone density values are in grams per centimeter squared (g/cm2). Statistically, 68% of repeat scans fall within 1 SD (+/- 0.010 g/cm2 for AP spine L1-L4) and 1 SD (+/- 0.012 g/cm2 for femur total) FRAX is a trademark of the [employer] [place] [facility] Met[employer] Disease, a World Health Organization (WHO) Collaborating Center. Electronically signed by: Chicho Magana MD 02/16/2025 01:52 PM EDT
== END 2025-02-16 13:08 | disposition home or self-care (01) ==
LOC: HO.MAMMO 13:07
PROVIDERS: PCP Family Medicine; Visit Provider Internal Medicine Endocrinology, Diabetes & Metabolism
DX: M81.0 Age-related osteoporosis without current pathological fracture (principal)
CPT/HCPCS: 77080

== ENCOUNTER 2025-03-05 12:00 | Outpatient (REF) | payer MEDICARE, SELFPAY ==
[2025-03-05 12:21] LABS: MANUAL DIFF FLAG NO
[2025-03-05 13:23] LABS: Basophils Absolute Auto 0.1 X10*3/uL (0.0-0.2); Basophils Percent Auto 0.5 % (0-2); Eosinophils Absolute Auto 0.1 X10*3/uL (0.0-0.4); Eosinophils Percent Auto 0.6 % (0-4); Hematocrit 40.5 % (37.0-47.0); Hemoglobin 13.8 g/dl (12.0-16.0); Imm Gran Abs Auto 0.05 X10*3/uL (0.00-0.03); Imm Gran Pct Auto 0.4 % (0.0-0.4); Lymphocytes Absolute Auto 1.7 X10*3/uL (1.2-4.9); Lymphocytes Percent Auto 15.3 % (20-40); Mean Corpuscular HGB Conc 34.1 g/dl (31.0-35.0); Mean Corpuscular Hemoglobin 32.7 pg (27.0-33.0); Mean Platelet Volume 9.6 fL (9.4-12.3); Monocytes Absolute Auto 0.9 X10*3/uL (0.1-1.2); Monocytes Percent Auto 7.6 % (2-11); Neutrophils Absolute Auto 8.5 x10*3/uL (2.0-8.3); Neutrophils Percent Auto 75.6 % (45-73); Platelet Count 274 X10*3/uL (160-400); Red Blood Count 4.22 X10*6/uL (4.20-5.50); Red Cell Distribution Width 12.8 % (11.0-16.0); White Blood Count 11.3 X10*3/uL (4.8-10.8)
[2025-03-05 13:31] LABS: Appearance Urine Clear; Color Urine Yellow; Glucose Urine UA Negative (Negative); Leukocyte Esterase Urine Trace (Negative); Nitrite Urine Negative (Negative); UMIC TRIGGER UACC YES; Urine Blood Negative (Negative); Urine Ketones Trace mg/dL (Negative); Urine Protein Negative (Neg-Trace)
[2025-03-05 13:36] LABS: Bacteria Urine None Seen (None Seen); RBC Urine 0-2 /HPF (0-2); Squamous Epithelial Cell Urine 0-2 /HPF (0-2); WBC Urine 0-5 /HPF (0-5)
[2025-03-05 13:49] LABS: Alanine Aminotransferase 23 U/L (0-31); Albumin Level 4.1 g/dL (3.5-5.0); Alkaline Phosphatase 75 U/L (39-117); Anion Gap 13 (12-20); Aspartate Amino Transferase 19 U/L (5-31); Bilirubin Total 0.3 mg/dL (0.0-1.0); Blood Urea Nitrogen 31 mg/dL (9-16); Calcium 10.1 mg/dL (8.4-10.2); Carbon Dioxide 30 mmol/L (22-29); Chloride 101 mmol/L (96-108); Cholesterol 200 mg/dL (<200); Estimated Glomerular Filt Rate 58; Glucose Fasting 104 mg/dL (60-99); Glucose Random 104 mg/dL (60-115); HDL Cholesterol 44 mg/dL (>40); LDL Cholesterol Calculated 131 mg/dL (<100); Potassium 4.8 mmol/L (3.3-5.1); Sodium 139 mmol/L (135-145); Total Protein 6.7 g/dL (6.5-8.0); Triglycerides 127 mg/dL (<150)
[2025-03-05 14:05] LABS: Creatinine Urine 117.12 mg/dL
[2025-03-05 14:17] LABS: TSH reflex Free T4 2.94 uIU/mL (0.32-4.0)
== END 2025-03-05 12:01 | disposition home or self-care (01) ==
LOC: HO.LAB 12:00
PROVIDERS: PCP Family Medicine; Visit Provider Internal Medicine Endocrinology, Diabetes & Metabolism
DX: Z00.00 Encounter for general adult medical examination without abnormal findings (principal); M81.0 Age-related osteoporosis without current pathological fracture; I10 Essential (primary) hypertension
CPT/HCPCS: 36415; 80048; 80053; 80061; 81001; 82043; 82570; 84443; 85025

== ENCOUNTER 2025-03-10 13:36 | Outpatient (AMB) | payer MEDICARE, SELFPAY ==
[2025-03-10 13:43] VITALS: BP 162/72; PULSE 77; O2SAT 96; BMI 22.5
--- NOTE | 2025-03-10 13:43 | A.OFFVIS_ITS ---
Vital Signs 03/10/25 13:43 Height 5 ft 2.6 in Weight 125 lb 7.088 oz BMI 22.5 BP 162/72 H Blood Pressure Location Rt brachial Position Sitting Pulse 77 Pulse Source Pulse Oximeter Pulse Oximetry (%) 96 Oxygen Delivery Method Room Air Intake Visit Reasons: Osteoporosis/Prolia Intake Note: Patient presents today for Osteoporosis follow up visit & Prolia Shot. Floor Director Required: No Accompanied by: Self / Same As Patient Allergies meperidine (Demerol) Allergy (Intermediate, Verified 03/10/25 13:46) hives tetracycline Allergy (Intermediate, Verified 03/10/25 13:46) nausea and vomiting dexamethasone (From Decadron) Adverse Reaction (Severe, Verified 03/10/25 13:46) severe burning sensation Environmental - Pollen Allergy (Mild, Uncoded 03/10/25 13:46) Itchy Eyes Medication List - Last Reconciled 03/10/25 by Chicho Stanford MD aspirin (Adult Aspirin Regimen) 81 mg PO DAILY calcium carbonate-vitamin D3 600 mg-5 mcg (200 unit) 1 tab PO DAILY cholecalciferol (vitamin D3) 25 mcg PO DAILY denosumab (Prolia) 60 mg subcut [id number] famotidine (Pepcid) 20 mg PO DAILY PRN hydrochlorothiazide 12.5 mg PO DAILY 90 days ibuprofen 400 mg PO Q8H PRN labetalol 200 mg PO BID lisinopril 5 mg PO DAILY 90 days vitamins A,C,C-ifvg-pqsczo 2,148 mcg-113 mg-45 mg-17.4mg (PreserVision AREDS) 1 tab PO BID HPI Comments Details: 89 yo female today for fup visit , for osteoporosis management She is feeling well, she has no complaints today. She still smokes. She is her today for fup and Prolia Shot. She has no side effects of the medication. She is currently on Prolia last dose was 05/10/2020 , she has been on Prolia for 7 years started in 2014 She has other PMH of macular degeneration, GERD, hypertension, spinal stenosis, depression. She has history of positive old lumbar spine compression fracture, negative FH of fractures or osteoporosis, no nephrolithiasis, no steroids used, + smoker, anti seizures medications, + SSRI, + PPI. He has negative negative History of head or neck irradiation. Bisphosphonates use: She used alendronate for 2 years prior to Prolia. Couldn't tolerate oral BP Calcium intake: Caltrate 500 mg bid Vitamin D: 1000 IU daily. Herbal medications. none 10/12/2020 AP SPINE L1-L3 (excluding L4): The data of L1-L4 has been changed to exclude the L4 vertebral body, because degenerative changes at this level may cause overestimation of lumbar spine density. Current: BMD 1.185 g/cm2, Z-score 2.1, T-score 0.1, normal, 3.7% increase from previous, 19.2% increase from baseline (<5% change is not significant). Prior: BMD 1.143 g/cm2. Baseline: BMD 0.994 g/cm2. LEFT FEMUR, NECK: Current: BMD 0.641 g/cm2, Z-score -0.5, T-score -2.9, osteoporosis. Prior: BMD 0.697 g/cm2. Baseline: BMD 0.675 g/cm2. LEFT FEMUR, TOTAL: Current: BMD 0.682 g/cm2, Z-score -0.4, T-score -2.6, osteoporosis, 1.6% decrease from previous, 10.3% decrease from baseline (<5% change is not significant). Prior: BMD 0.693 g/cm2. Baseline: BMD 0.760 g/cm2. Laboratory Tests 11/23/19 05/30/20 05/30/20 12:05 12:10 Unknown Creatinine 0.79 Est GFR (Non-Af Amer) > 60 Calcium 9.3 Albumin 4.3 N-Telopeptide X-linked 25 25-OH Vitamin D Total 62.3 TSH 3rd Generation 3.21 No fractures or falls since last visit . On Prolia for 9 yrs . Due for dose today . Tolerating Prolia without problems The patient is an 89-year-old female presenting with osteoporosis management. Her bone density has remained stable, although it is borderline for osteoporosis. She has been receiving Prolia for eight years, which is within the recommended duration of five to ten years. The patient has a history of taking alendronate (Fosamax) but experienced significant gastroesophageal reflux disease (GERD) as a side effect. She is currently taking calcium and vitamin D supplements and has not experienced any fractures since her last visit. She is going to be away for the next 2 weeks is not available to receive her Reclast infusion [facility] Medical History Smoker Peripheral neuropathy Low back pain Vitamin D deficiency Osteoporosis Surgical History H/O bilateral cataract extraction Hx of colonoscopy Hx of laminectomy History of total hysterectomy with bilateral salpingo-oophorectomy (BSO) Hx of appendectomy Family History Father No problems noted. Mother No problems noted. Other Hypertension Social History Housing: Condominium Patient Tobacco Use Status: Current everyday Tobacco user Tobacco use type: Cigarette Cigarettes Per Day: 7 Years Smoked: 30+ e-Cigarette/Vaping Use: Never Used Second Hand Smoke Exposure: No service: No Current occupational status: retired Current occupational exposures/hazards: No Cognitive needs: No Hearing needs: No Vision needs: No Physical Exam Vital Signs: Last Vital Signs Pulse 77 03/10/25 13:43 BP 162/72 H 03/10/25 13:43 Pulse Ox 96 03/10/25 13:43 Oxygen Delivery Method Room Air 03/10/25 13:43 BMI result Body Mass Index 22.5 Assessment & Plan Assessment & Plan (1) Osteoporosis: Code(s): M81.0 - Age-related osteoporosis without current pathological fracture Category: Medical Plan: This is a 89-year-old white female with a history of osteoporosis and previous vertebral fracture treated for 2 years with bisphosphonate and currently on Prolia for 8 yrs . She had negative secondary workup 1. Osteoporosis The patient's bone density is stable but borderline for osteoporosis. She has been on Prolia for eight years, which is within the recommended duration. The plan is to administer Prolia today and schedule Reclast in six months to prevent rebound effects. Follow-up is planned in five months to reassess and prepare for Reclast administration. I discussed with the patient the stability of her bone density and the borderline osteoporosis status. We reviewed the continuation of Prolia for today and the plan to administer Reclast in six months to prevent rebound effects. The patient was informed about the necessity of timely Reclast administration following Prolia cessation. We also discussed her previous experience with alendronate and the associated GERD. Follow-up was scheduled in five months to reassess and prepare for Reclast administration. - Continue taking calcium and vitamin D supplements daily. - Return for follow-up in five months to prepare for Reclast administration. - The patient had an opportunity to ask questions regarding treatment plan. The patient expressed understanding and agreement with the above treatment plan. . Patient was informed and verbally consented to the use of an ambient scribe for clinic note documentation during this visit. Coding Level of Care Code Est Pt Level 3 (12392) Diagnoses Osteoporosis M81.0
== END 2025-03-10 14:03 | disposition home or self-care (01) ==
LOC: HO.ENCR 13:37
PROVIDERS: PCP Family Medicine; Visit Provider Internal Medicine Endocrinology, Diabetes & Metabolism
DX: M81.0 Age-related osteoporosis without current pathological fracture (principal)
CPT/HCPCS: 99213

== ENCOUNTER → 2025-03-10 13:36 | Outpatient (BNVA) | payer MEDICARE, SELFPAY | PROVIDERS: PCP Family Medicine; Visit Provider Internal Medicine Endocrinology, Diabetes & Metabolism | DX: M81.0 Age-related osteoporosis without current pathological fracture (principal) | CPT/HCPCS: 96372; 99212; J0897 ==

== ENCOUNTER 2025-03-25 13:15 | Outpatient (AMB) | payer MEDICARE, SELFPAY ==
--- NOTE | 2025-03-25 13:30 | A.OFFPC_ITS ---
Vital Signs 03/25/25 13:33 03/25/25 13:36 Height 5 ft 2.6 in Weight 124 lb 8 oz BMI 22.3 BP 150/70 H 160/70 H Blood Pressure Location Lt brachial Lt brachial Position Sitting Sitting Respiration 14 Pulse 56 Pulse Source Pulse Oximeter Temp 97.6 F Temp Source Oral Pulse Oximetry (%) 98 Oxygen Delivery Method Room Air Intake Visit Reasons: f/u HTN, chronic conditions Intake Note: patient is scheduled to follow up on htn and chronic condition Plumbing Instructor Required: No Allergies meperidine (Demerol) Allergy (Intermediate, Verified 03/25/25 13:31) hives tetracycline Allergy (Intermediate, Verified 03/25/25 13:31) nausea and vomiting dexamethasone (From Decadron) Adverse Reaction (Severe, Verified 03/25/25 13:31) severe burning sensation Environmental - Pollen Allergy (Mild, Uncoded 03/10/25 13:46) Itchy Eyes Medication List - Last Reconciled 03/25/25 by Mike Vegas MD aspirin (Adult Aspirin Regimen) 81 mg PO DAILY calcium carbonate-vitamin D3 600 mg-5 mcg (200 unit) 1 tab PO DAILY cholecalciferol (vitamin D3) 25 mcg PO DAILY denosumab (Prolia) 60 mg subcut [id number] famotidine (Pepcid) 20 mg PO DAILY PRN hydrochlorothiazide 12.5 mg PO DAILY 90 days ibuprofen 400 mg PO Q8H PRN labetalol 200 mg PO BID lisinopril 10 mg PO DAILY 90 days vitamins A,C,K-lpxg-wvxvck 2,148 mcg-113 mg-45 mg-17.4mg (PreserVision AREDS) 1 tab PO BID Tobacco use date assessed: 07/23/23 Dental Screening Dental Screen Date: 12/17/23 HPI f/u HTN, chronic conditions HPI Details Patient presents to follow-up pre diabetes, hypertension and lower extremity weakness A1c was previously 5.6% and improved to 5.3% recently, today however has climbed to 5.7%. She notes that she has had more dietary indiscretions with sugars and starches. Blood pressure is high today. She is taking her medications as prescribed Patient says that she had difficulty trying to get to physical therapy which was ordered for lower extremity weakness. [facility] Medical History Smoker Peripheral neuropathy Low back pain Vitamin D deficiency Osteoporosis Surgical History H/O bilateral cataract extraction Hx of colonoscopy Hx of laminectomy History of total hysterectomy with bilateral salpingo-oophorectomy (BSO) Hx of appendectomy Family History Father No problems noted. Mother No problems noted. Other Hypertension Social History Housing: Condominium Patient Tobacco Use Status: Current everyday Tobacco user Tobacco use type: Cigarette Cigarettes Per Day: 7 Years Smoked: 30+ e-Cigarette/Vaping Use: Never Used Second Hand Smoke Exposure: No service: No Current occupational status: retired Current occupational exposures/hazards: No Cognitive needs: No Hearing needs: No Vision needs: No Questionnaire Thrive Questionnaire Date Thrive assessed: 10/09/24 I am a: Patient What is your living situation today?: I have a steady place to live Within the past 12 months, did the food you bought not last and you didn't have the money to get more?: Never true Within the past 12 months, did you worry whether your food would run out before you got money to buy more?: Never true Do you have trouble paying for medicines?: No Do you have trouble getting transportation to medical appointments?: Yes Do you have trouble paying your heating and electricity bill?: No Do you have trouble taking care of your child, family member or friend?: No Do you have trouble with day-to-day activities such as bathing, preparing meals, shopping, managing finances, etc.?: No Are you currently unemployed and looking for a job?: No Are you interested in more education?: Yes Please select the resources that you would like help with: Transportation Currently or been in a relationship where the following occur: No concerns reported THRIVE Score: 1 RAHUL-7 AMB Questionnaire RAHUL-7 Date RAHUL - 7 assessed: 12/17/23 Source: Developed by Drs. Chicho Hanson, Denia Salguero, Ceasar Lebron and colleagues, with an educational colt from [employer]. Review of Systems Const Denies chills, Denies fatigue, Denies fever(s), Denies headache(s) and Denies weakness ENT Denies dizziness and Denies headache(s) Card Denies chest pain, Denies lightheadedness, Denies dyspnea and Denies other (Palpitations) Resp Denies cough, Denies dyspnea, Denies wheezing and Denies other ( shortness of breath) Musc Denies numbness and Denies tingling Neuro Denies dizziness, Denies headache(s), Denies numbness, Denies tingling, Denies paresthesias and Denies weakness Psych Denies anxiety and Denies depression Endo Denies fatigue Aller/Immun Denies wheezing Physical exam (Primary Care) Vital Signs: Last Vital Signs Temp 97.6 F 03/25/25 13:33 Pulse 56 03/25/25 13:33 Resp 14 03/25/25 13:33 BP 160/70 H 03/25/25 13:36 Pulse Ox 98 03/25/25 13:33 Oxygen Delivery Method Room Air 03/25/25 13:33 BMI result Body Mass Index 22.3 Tobacco/Smoking Status: Tobacco use Status Tobacco use date assessed 07/23/23 03/25/25 13:35 Patient Tobacco Use Status Current everyday Tobacco 03/25/25 13:35 Tobacco use type Cigarette 03/25/25 13:35 e-Cigarette/Vaping Use Never Used 03/25/25 13:35 Thrive Assessment: Date of Thrive Assessment Date Thrive assessed 10/09/24 03/25/25 13:35 Currently or been in a relationship where the following occur: No concerns reported Const General: no acute distress and well developed Nutritional Appearance: well nourished Orientation/consciousness: patient oriented x3 [facility] Head: Yes normocephalic and Yes atraumatic Eyes General: appearance normal, both eyes and all related structures Pupils: Equal, round and reactive pupils present EOM: EOMs intact bilaterally Resp Effort & Inspection: normal respiratory effort Auscultation: clear to auscultation bilaterally Cardio Rate: regular rate Rhythm: regular rhythm Heart sounds: S1 normal heart sound present, S2 normal heart sound present, no gallops, no murmurs and no rubs Neuro General: patient oriented x3 and gait normal Cranial nerves: Yes Equal, round and reactive pupils present Psych Affect: normal affect Results AMB Hemoglobin A1c AMB Hemoglobin A1c 5.7 % Last Edit by KEVIN Villanueva on 03/25/25 13:52 Coding Level of Care Code Est Pt Level 4 (73482) Diagnoses Essential hypertension I10 Pre-diabetes R73.03 Lower extremity weakness R29.898 Assessment & Plan Assessment & Plan (1) Essential hypertension: Code(s): I10 - Essential (primary) hypertension Category: Medical Plan: Blood pressure is too high. Goal is less than 140/90 Continue labetalol and hydrochlorothiazide as prescribed Increasing lisinopril from 5 mg daily to 10 mg daily She will return in 1 month to follow-up blood pressure Patient has difficulty with appointments and transportation. (2) Pre-diabetes: Code(s): R73.03 - Prediabetes Category: Medical Plan: A1c climbed and encouraged a diet lower in sugars and starches Patient agrees (3) Lower extremity weakness: Code(s): R29.898 - Other symptoms and signs involving the musculoskeletal system Category: Medical Plan: Patient had been referred for physical therapy but is having difficulty with transportation Will ask Mto start pT1 form Orders: Orders AMB Hemoglobin A1c Today R73.03 - Prediabetes Medications: Changed From lisinopril 5 mg PO DAILY 90 days 90 tabs 1RF To lisinopril 10 mg PO DAILY 90 tabs 1RF 90 days
[2025-03-25 13:33] VITALS: BP 150/70; PULSE 56; RESP 14; TEMP 36.4; O2SAT 98; BMI 22.3
[2025-03-25 13:36] VITALS: BP 160/70
== END 2025-03-25 13:58 | disposition home or self-care (01) ==
LOC: HO.HMCFM 13:16
PROVIDERS: PCP Family Medicine; Visit Provider Family Medicine
DX: I10 Essential (primary) hypertension (principal); R73.03 Prediabetes; R29.898 Other symptoms and signs involving the musculoskeletal system

== ENCOUNTER → 2025-03-25 13:15 | Outpatient (BNVA) | payer MEDICARE, SELFPAY | PROVIDERS: PCP Family Medicine; Visit Provider Family Medicine | DX: I10 Essential (primary) hypertension (principal); R73.03 Prediabetes; R29.898 Other symptoms and signs involving the musculoskeletal system | CPT/HCPCS: 83036; 99212 ==

== ENCOUNTER 2025-05-14 13:38 | Outpatient (AMB) | payer MEDICARE, SELFPAY ==
--- NOTE | 2025-05-14 13:45 | A.OFFPC_ITS ---
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 Required: No Is last menstrual period known: No Post menopausal: No Patient : No Allergies meperidine (Demerol) Allergy (Intermediate, Verified 05/14/25 13:56) hives tetracycline Allergy (Intermediate, Verified 05/14/25 13:56) nausea and vomiting dexamethasone (From Decadron) Adverse Reaction (Severe, Verified 05/14/25 13:56) severe burning sensation Environmental - Pollen Allergy (Mild, Uncoded 03/10/25 13:46) Itchy Eyes Medication List - Last Reconciled 05/14/25 by Mike Vegas MD aspirin (Adult Aspirin Regimen) 81 mg PO DAILY calcium carbonate-vitamin D3 600 mg-5 mcg (200 unit) 1 tab PO DAILY cholecalciferol (vitamin D3) 25 mcg PO DAILY denosumab (Prolia) 60 mg subcut [id number] famotidine (Pepcid) 20 mg PO DAILY PRN hydrochlorothiazide 12.5 mg PO DAILY 90 days ibuprofen 400 mg PO Q8H PRN labetalol 200 mg PO BID lisinopril 10 mg PO DAILY 90 days vitamins A,C,U-rdra-sckjuw 2,148 mcg-113 mg-45 mg-17.4mg (PreserVision AREDS) 1 tab PO BID Tobacco use date assessed: 05/14/25 Fall risk assessment: No Falls in past year Last assessed Fall Risk: 05/14/25 Dental Screening Dental Screen Date: 05/14/25 Did you have a dental visit in the last 12 months?: No Did you have a dental problem in the last 6 months where you did not have access to dental care?: No Was dental information given to patient?: No HPI blood pressure HPI Details 89 y/o male presents today to f/u hypert ension. BP today 147//66, 57p. He is on lisinopril 10mg, labetalol 200mg b.i,d, hydrochlorothiazide 12.5mg daily. PFSH Medical History Smoker Peripheral neuropathy Low back pain Vitamin D deficiency Osteoporosis Surgical History H/O bilateral cataract extraction Hx of colonoscopy Hx of laminectomy History of total hysterectomy with bilateral salpingo-oophorectomy (BSO) Hx of appendectomy Family History Father No problems noted. Mother No problems noted. Other Hypertension Social History Housing: Condominium Patient Tobacco Use Status: Current everyday Tobacco user Tobacco use type: Cigarette Cigarettes Per Day: 7 Years Smoked: 30+ e-Cigarette/Vaping Use: Never Used Second Hand Smoke Exposure: No service: No Current occupational status: retired Current occupational exposures/hazards: No Cognitive needs: No Hearing needs: No Vision needs: No Questionnaire Thrive Questionnaire Date Thrive assessed: 10/09/24 I am a: Patient What is your living situation today?: I have a steady place to live Within the past 12 months, did the food you bought not last and you didn't have the money to get more?: Never true Within the past 12 months, did you worry whether your food would run out before you got money to buy more?: Never true Do you have trouble paying for medicines?: No Do you have trouble getting transportation to medical appointments?: Yes Do you have trouble paying your heating and electricity bill?: No Do you have trouble taking care of your child, family member or friend?: No Do you have trouble with day-to-day activities such as bathing, preparing meals, shopping, managing finances, etc.?: No Are you currently unemployed and looking for a job?: No Are you interested in more education?: Yes Please select the resources that you would like help with: Transportation Currently or been in a relationship where the following occur: No concerns reported THRIVE Score: 1 RAHUL-7 AMB Questionnaire RAHUL-7 Date RAHUL - 7 assessed: 12/17/23 Source: Developed by Drs. Chicho Hanson, Denia Salguero, Ceasar Lebron and colleagues, with an educational colt from [employer]. Review of Systems Const Denies chills, Denies fatigue, Denies fever(s), Denies headache(s) and Denies weakness ENT Denies dizziness and Denies headache(s) Card Denies chest pain, Denies lightheadedness, Denies dyspnea and Denies other (Palpitations) Resp Denies cough, Denies dyspnea, Denies wheezing and Denies other ( shortness of breath) Musc Denies numbness and Denies tingling Neuro Denies dizziness, Denies headache(s), Denies numbness, Denies tingling, Denies paresthesias and Denies weakness Psych Denies anxiety and Denies depression Endo Denies fatigue Aller/Immun Denies wheezing Physical exam (Primary Care) Vital Signs: Last Vital Signs Temp 97.9 F 05/14/25 13:57 Pulse 57 05/14/25 13:57 Resp 16 05/14/25 13:57 BP 147/66 H 05/14/25 13:57 Pulse Ox 100 05/14/25 13:57 Oxygen Delivery Method Room Air 05/14/25 13:57 BMI result Body Mass Index 22.2 Tobacco/Smoking Status: Tobacco use Status Tobacco use date assessed 05/14/25 05/14/25 14:00 Patient Tobacco Use Status Current everyday Tobacco 05/14/25 13:46 Tobacco use type Cigarette 05/14/25 13:46 e-Cigarette/Vaping Use Never Used 05/14/25 13:46 Thrive Assessment: Date of Thrive Assessment Date Thrive assessed 10/09/24 05/14/25 13:46 Currently or been in a relationship where the following occur: No concerns reported Const General: no acute distress and well developed Nutritional Appearance: well nourished Orientation/consciousness: patient oriented x3 [facility] Head: Yes normocephalic and Yes atraumatic Eyes General: appearance normal, both eyes and all related structures Pupils: Equal, round and reactive pupils present EOM: EOMs intact bilaterally Resp Effort & Inspection: normal respiratory effort Auscultation: clear to auscultation bilaterally Cardio Rate: regular rate Rhythm: regular rhythm Heart sounds: S1 normal heart sound present, S2 normal heart sound present, no gallops, no murmurs and no rubs Neuro General: patient oriented x3 and gait normal Cranial nerves: Yes Equal, round and reactive pupils present Psych Affect: normal affect Coding Level of Care Code Est Pt Level 3 (27549) Diagnoses Essential hypertension I10 Assessment & Plan Assessment & Plan (1) Essential hypertension: Code(s): I10 - Essential (primary) hypertension Category: Medical Plan: Blood pressure initially high on presentation but controlled range with relaxation. Had increased her lisinopril at last visit and she continues labetalol and hydrochlorothiazide as prescribed. Continue current medication. We will continue to monitor Follow-up in 3 months Orders: Orders Comprehensive [place]. Panel Fast Today Z00.00 - Encounter for general adult medical examination without abnormal findings TSH reflex Free T4 Today Z00.00 - Encounter for general adult medical examination without abnormal findings Complete Blood Count Auto Diff Today Z00.00 - Encounter for general adult medical examination without abnormal findings Lipid Panel Today Z00.00 - Encounter for general adult medical examination without abnormal findings Microalbumin, Random (w Creat) Today I10 - Essential (primary) hypertension UA CC w/rflx Micro + Cult Today Z00.00 - Encounter for general adult medical examination without abnormal findings
[2025-05-14 13:57] VITALS: BP 147/66; PULSE 57; RESP 16; TEMP 36.6; O2SAT 100; BMI 22.2
[2025-05-14 14:42] VITALS: BP 138/78
== END 2025-05-14 14:44 | disposition home or self-care (01) ==
LOC: HO.HMCFM 13:38
PROVIDERS: PCP Family Medicine; Visit Provider Family Medicine
DX: I10 Essential (primary) hypertension (principal)

== ENCOUNTER → 2025-05-14 13:38 | Outpatient (BNVA) | payer MEDICARE, SELFPAY | PROVIDERS: PCP Family Medicine; Visit Provider Family Medicine | DX: I10 Essential (primary) hypertension (principal) | CPT/HCPCS: 99212 ==

== ENCOUNTER 2025-08-16 15:23 | Outpatient (AMB) | payer MEDICARE, SELFPAY ==
--- NOTE | 2025-08-16 15:29 | MHC.OFFVIS ---
Vital Signs 08/16/25 15:35 Height 5 ft 2.99 in Weight 126 lb 15.78 oz BMI 22.5 BP 134/70 Blood Pressure Location Lt brachial Position Sitting Pulse 70 Pulse Source Pulse Oximeter Pulse Oximetry (%) 98 Oxygen Delivery Method Room Air Intake Visit Reasons: f/u osteoporosis Intake Note: Patient presents today for Osteoporosis follow up. Contract Admin Required: No Accompanied by: Niece Allergies meperidine (Demerol) Allergy (Intermediate, Verified 08/16/25 15:34) hives tetracycline Allergy (Intermediate, Verified 08/16/25 15:34) nausea and vomiting dexamethasone (From Decadron) Adverse Reaction (Severe, Verified 08/16/25 15:34) severe burning sensation Environmental - Pollen Allergy (Mild, Uncoded 08/16/25 15:34) Itchy Eyes Medication List - Last Reconciled 08/16/25 by Chicho Stanford MD aspirin (Adult Aspirin Regimen) 81 mg PO DAILY calcium carbonate-vitamin D3 600 mg-5 mcg (200 unit) 1 tab PO DAILY cholecalciferol (vitamin D3) 25 mcg PO DAILY denosumab (Prolia) 60 mg subcut [id number] famotidine (Pepcid) 20 mg PO DAILY PRN hydrochlorothiazide 12.5 mg PO DAILY 90 days ibuprofen 400 mg PO Q8H PRN labetalol 200 mg PO BID lisinopril 10 mg PO DAILY 90 days vitamins A,C,J-mtax-rkcrci 2,148 mcg-113 mg-45 mg-17.4mg (PreserVision AREDS) 1 tab PO BID HPI Comments Details: 89 yo female today for fup visit , for osteoporosis management She is feeling well, she has no complaints today. She still smokes. She is her today for fup and Prolia Shot. She has no side effects of the medication. She is currently on Prolia last dose was 05/10/2020 , she has been on Prolia for 7 years started in 2014 She has other PMH of macular degeneration, GERD, hypertension, spinal stenosis, depression. She has history of positive old lumbar spine compression fracture, negative FH of fractures or osteoporosis, no nephrolithiasis, no steroids used, + smoker, anti seizures medications, + SSRI, + PPI. He has negative negative History of head or neck irradiation. Bisphosphonates use: She used alendronate for 2 years prior to Prolia. Couldn't tolerate oral BP Calcium intake: Caltrate 500 mg bid Vitamin D: 1000 IU daily. Herbal medications. none 10/12/2020 AP SPINE L1-L3 (excluding L4): The data of L1-L4 has been changed to exclude the L4 vertebral body, because degenerative changes at this level may cause overestimation of lumbar spine density. Current: BMD 1.185 g/cm2, Z-score 2.1, T-score 0.1, normal, 3.7% increase from previous, 19.2% increase from baseline (<5% change is not significant). Prior: BMD 1.143 g/cm2. Baseline: BMD 0.994 g/cm2. LEFT FEMUR, NECK: Current: BMD 0.641 g/cm2, Z-score -0.5, T-score -2.9, osteoporosis. Prior: BMD 0.697 g/cm2. Baseline: BMD 0.675 g/cm2. LEFT FEMUR, TOTAL: Current: BMD 0.682 g/cm2, Z-score -0.4, T-score -2.6, osteoporosis, 1.6% decrease from previous, 10.3% decrease from baseline (<5% change is not significant). Prior: BMD 0.693 g/cm2. Baseline: BMD 0.760 g/cm2. Laboratory Tests 11/23/19 05/30/20 05/30/20 12:05 12:10 Unknown Creatinine 0.79 Est GFR (Non-Af Amer) > 60 Calcium 9.3 Albumin 4.3 N-Telopeptide X-linked 25 25-OH Vitamin D Total 62.3 TSH 3rd Generation 3.21 No fractures or falls since last visit . On Prolia for 9 yrs . Due for dose today . Tolerating Prolia without problems The patient is an 89-year-old female presenting with osteoporosis management. Her bone density has remained stable, although it is borderline for osteoporosis. She has been receiving Prolia for eight years, which is within the recommended duration of five to ten years. The patient has a history of taking alendronate (Fosamax) but experienced significant gastroesophageal reflux disease (GERD) as a side effect. She is currently taking calcium and vitamin D supplements and has not experienced any fractures since her last visit. [facility] Medical History Smoker Peripheral neuropathy Low back pain Vitamin D deficiency Osteoporosis Surgical History H/O bilateral cataract extraction Hx of colonoscopy Hx of laminectomy History of total hysterectomy with bilateral salpingo-oophorectomy (BSO) Hx of appendectomy Family History Father No problems noted. Mother No problems noted. Other Hypertension Social [facility] Patient Tobacco Use Status: Current everyday Tobacco user Tobacco use type: Cigarette Cigarettes Per Day: 7 Years Smoked: 30+ e-Cigarette/Vaping Use: Never Used Second Hand Smoke Exposure: No service: No Current occupational status: retired Current occupational exposures/hazards: No Cognitive needs: No Hearing needs: No Vision needs: No Physical Exam Vital Signs: Last Vital Signs Pulse 70 08/16/25 15:35 BP 134/70 08/16/25 15:35 Pulse Ox 98 08/16/25 15:35 Oxygen Delivery Method Room Air 08/16/25 15:35 BMI result Body Mass Index 22.5 Assessment & Plan Assessment & Plan (1) Osteoporosis: Code(s): M81.0 - Age-related osteoporosis without current pathological fracture Category: Medical Plan: This is a 89-year-old white female with a history of osteoporosis and previous vertebral fracture treated for 2 years with bisphosphonate and currently on Prolia for 8 yrs . She had negative secondary workup 1. Osteoporosis The patient's bone density is stable but borderline for osteoporosis. She has been on Prolia for eight years, which is within the recommended duration. The plan is to transition to Reclast this month to prevent rebound effects. Will check a basic metabolic panel prior to Reclast infusion. Will also check Urine NTX 3 months after the Reclast infusion have patient follow-up after - Orders: Orders Basic Metabolic Panel Today M81.0 - Age-related osteoporosis without current pathological fracture Calcium Today M81.0 - Age-related osteoporosis without current pathological fracture Albumin Level Today M81.0 - Age-related osteoporosis without current pathological fracture Collagen Crosslinks NTX 14 Weeks M81.0 - Age-related osteoporosis without current pathological fracture Referrals Infusion Center Notification M81.0 - Age-related osteoporosis without current pathological fracture Coding Level of Care Code Est Pt Level 3 (86303) Diagnoses Osteoporosis M81.0
[2025-08-16 15:35] VITALS: BP 134/70; PULSE 70; O2SAT 98; BMI 22.5
== END 2025-08-16 15:58 | disposition home or self-care (01) ==
LOC: HO.ENCR 15:24
PROVIDERS: PCP Family Medicine; Visit Provider Internal Medicine Endocrinology, Diabetes & Metabolism
DX: M81.0 Age-related osteoporosis without current pathological fracture (principal)
CPT/HCPCS: 99213

== ENCOUNTER → 2025-08-16 15:23 | Outpatient (BNVA) | payer MEDICARE, SELFPAY | PROVIDERS: PCP Family Medicine; Visit Provider Internal Medicine Endocrinology, Diabetes & Metabolism | DX: M81.0 Age-related osteoporosis without current pathological fracture (principal); F17.210 Nicotine dependence, cigarettes, uncomplicated; Z79.82 Long term (current) use of aspirin | CPT/HCPCS: 99212 ==

== ENCOUNTER 2025-08-20 11:38 | Outpatient (REF) | payer MEDICARE, SELFPAY ==
[2025-08-20 12:49] LABS: Albumin Level 4.5 g/dL (3.5-5.0); Anion Gap 15 (12-20); Blood Urea Nitrogen 23 mg/dL (9-16); Calcium 9.5 mg/dL (8.4-10.2); Carbon Dioxide 28 mmol/L (22-29); Chloride 101 mmol/L (96-108); Estimated Glomerular Filt Rate > 60; Potassium 4.5 mmol/L (3.3-5.1); Sodium 139 mmol/L (135-145)
== END 2025-08-20 11:39 | disposition home or self-care (01) ==
LOC: HO.LAB 11:38
PROVIDERS: PCP Family Medicine; Visit Provider Internal Medicine Endocrinology, Diabetes & Metabolism
DX: M81.0 Age-related osteoporosis without current pathological fracture (principal)
CPT/HCPCS: 36415; 80048; 82040

== ENCOUNTER 2025-09-01 12:39 | Outpatient (RCR) | payer MEDICARE, SELFPAY ==
[2025-09-01 12:47] VITALS: BP 131/44; PULSE 59; RESP 16; TEMP 36.9; O2SAT 100
== END 2025-09-01 13:36 | disposition home or self-care (01) ==
LOC: HO.INF 12:39
PROVIDERS: Visit Provider Internal Medicine Endocrinology, Diabetes & Metabolism
DX: M81.0 Age-related osteoporosis without current pathological fracture (principal)
CPT/HCPCS: 96374; J3489